=== PATIENT | male | born 1955 | race Caucasian/White ===

== ENCOUNTER 2016-09-16 12:29 | Inpatient (IN) | payer MEDICAID, OTHER ==
[~2016-09-16] VITALS: Ht 182.9 cm; Wt 72.0 kg
[~2016-09-16 12:29] MED LIST changes: -BACT800T5 PO; -COLA100C3 PO; -EMTR1TAB PO; -EMTR1TAB5 PO; -MEGE40S PO
[2016-09-16] MEDS ORDERED: EMTR1TAB PO (12:42)
[2016-09-17] MEDS ORDERED: BACT800T5 PO (11:00)
[2016-09-23] MEDS ORDERED: METOPROLOL TARTRATE 25 MG TAB PO PRN (06:15)
[2016-09-23] MEDS ORDERED: SODIUM CHLORID 0.9% 500 ML IV PRN (06:15)
[2016-09-23] MEDS ORDERED: POVIDONE IODINE 5% (ANTISEPSIS KIT) 4 APPLICATIONS EACH NARE PRN (06:15)
[2016-09-23] MEDS ORDERED: INSULIN HUMAN REGULAR 1,000 UNITS/10 ML VIAL SQ PRN (06:15)
[2016-09-23] MEDS ORDERED: CHLORHEXIDINE GLUCONATE 2 % 1 PACK (2 CLOTHS) TOPICAL PRN (06:15)
[2016-09-23] MEDS ORDERED: LACTATED RINGER'S 1000 ML IV PRN (06:15)
[2016-09-23 06:32] VITALS: BP 98/67; PULSE 87; RESP 18; TEMP 97.8; O2SAT 98
[2016-09-23] MEDS ORDERED: GELFOAM SIZE 100 ONE (07:28)
[2016-09-23] MEDS ORDERED: FAMOTIDINE 20 MG/2 ML VIAL ONE (08:09)
[2016-09-23] MEDS ORDERED: MIDAZOLAM HCL 2 MG/2 ML VIAL ONE (08:09)
[2016-09-23] MEDS ORDERED: fentaNYL CITRATE 250 MCG/5 ML AMP ONE ×2 (08:09→16:05)
[2016-09-23] MEDS ORDERED: GENTAMICIN 80 MG PREMIX 100 ML ONE (08:10)
[2016-09-23] MEDS ORDERED: SODIUM CHLOR 0.9% 250 ML INJ 250 ML ONE (08:10)
[2016-09-23] MEDS ORDERED: metroNIDAZOLE 500 MG INJ 100 ML IV ONE (08:10)
[2016-09-23] MEDS ORDERED: VANCOMYCIN HCL 1000 MG VIAL ONE (08:10)
[2016-09-23] MEDS ORDERED: METRONIDAZOLE 500 MG/100 ML ISONTONIC SOLN IV SCH (08:30)
[2016-09-23] MEDS ORDERED: GENTAMICIN/SOD CHL 80 MG/100 ML IV SCH (08:30)
[2016-09-23] MEDS ORDERED: VANCOMYCIN HCL 1000 MG ON-CALL/NS 250 ML IV SCH ×2 (08:30)
[2016-09-23] MEDS ORDERED: ACETAMINOPHEN 1000 MG/100 ML VIAL IV ONE (10:32)
[2016-09-23 12:07] LABS: HEMATOCRIT 22.7 % (39.0-51.0); REVIEW FLAG FINAL
[2016-09-23 14:00] LABS: HEMATOCRIT 26.5 % (39.0-51.0); REVIEW FLAG FINAL
[2016-09-23 14:12] LABS: BLOOD GAS CARBOXYHEMOGLOBIN 2.1 % (0-4); BLOOD GAS HCO3 22 mmol/L (22-26); BLOOD GAS METHEMOGLOBIN 1.4 % (0-2); BLOOD GAS O2 HGB SATURATION 96 % (90-100); BLOOD GAS OXYGEN CONTENT 20.1 Vol % (12.0-20.0); BLOOD GAS PCO2 46 mmHg (38-42); BLOOD GAS PO2 223 mmHg (61-120); BLOOD GAS TOTAL HGB 14.6 G/DL (12.0-16.0); CRITICAL VALUE NO; TEMP CORR TO 98.6
[2016-09-23 14:13] LABS: FIO2 56 %; STAT NO
[2016-09-23 14:14] LABS: BLOOD GAS CARBOXYHEMOGLOBIN 1.8 % (0-4); BLOOD GAS HCO3 22 mmol/L (22-26); BLOOD GAS METHEMOGLOBIN 1.4 % (0-2); BLOOD GAS O2 HGB SATURATION 96 % (90-100); BLOOD GAS OXYGEN CONTENT 16.8 Vol % (12.0-20.0); BLOOD GAS PCO2 45 mmHg (38-42); BLOOD GAS PO2 249 mmHg (61-120); TEMP CORR TO 98.6
[2016-09-23 14:15] LABS: CRITICAL VALUE NO; FIO2 56 %; STAT NO
[2016-09-23] MEDS ORDERED: LACTATED RINGER'S 1000 ML INJ 5,000 ML IV ONE (14:15)
[2016-09-23] MEDS ORDERED: PHENYLEPH/NS 1000 MCG/10 ML SYR IV ONE (14:15)
[2016-09-23] MEDS ORDERED: ONDANSETRON HCL 4 MG/2 ML VIAL IV PUSH ONE (14:15)
[2016-09-23] MEDS ORDERED: PROPOFOL 200 MG/20 ML AMP IV ONE (14:15)
[2016-09-23] MEDS ORDERED: ONDANSETRON HCL 4 MG/2 ML VIAL IV PUSH PRN (15:45)
[2016-09-23] MEDS ORDERED: ACETAMINOPHEN 120 MG SUPP RECTAL PRN (15:45)
[2016-09-23] MEDS ORDERED: DO NOT ADM ANY ANTICOAGULANT DRUGS PRN (15:57)
[2016-09-23] MEDS ORDERED: *morphine SULFATE 8 MG/ML PERIprocedure ONLY ONE ×3 (16:06→16:45)
[2016-09-23] MEDS ORDERED: SUGAMMADEX SODIUM 200 MG/2 ML VIAL IV PUSH ONE ×2 (16:06)
--- NOTE | 2016-09-23 16:10 | PD.OP ---
Operative Report Date of Surgery: Sep 23, 2016 Preoperative Diagnosis: High-grade muscle invasive bladder cancer Postoperative Diagnosis: Same Procedure: Radical cystoprostatectomy with bilateral pelvic lymph node dissection with creation of ileal conduit Anesthesia: BHARGAV Surgeon: López Vora Manager Career(s): Dr. Jhonny Garcia Resident Surgeon: None Operation and Findings: 61-year-old male with diagnosis of muscle invasive bladder cancer. 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 Risk and benefits were discussed preoperatively with both patient and his family and they were willing to proceed. Patient is brought to the operating room and identified by myself as Maxim Foster. He was placed on the operating room table in the supine position, prepped and draped in usual sterile fashion, received preprocedure antibiotics, and general endotracheal tube anesthesia was administered. Central line was placed as well as a arterial line. An NG tube was also placed. 15 blade was used to make the opening incision from the symphysis pubis up to the umbilicus. Rick's and Camper's fascia were then entered in the midline was identified. The knife was then used to make a small incision in the fascia, and then my index finger was able to slide under the fascia and cut the fascia with the Bovie cautery. The rectus muscle was at the linea alba and then the peritoneum was swept medially along the pelvic side stoddard on each side. This time the pelvic lymph node dissection was then performed. Once the Bookwalter was then placed and retractors were set in place, the pelvic lymph node dissection was then initiated. Using the Metzenbaum scissors as well as multiple medium clips the sky packet was retrieved from the right obturator lymph node fossa. This was then sent to pathology. This was again then repeated on the left side without difficulty and the sky packet was then sent to pathology. Pathology reported the both lymph node packets were negative for metastatic disease. Care was taken to avoid both obturator nerves on each side. Ray-Perez sponges were each placed in the obturator fossas. At this time a inverted V-shaped incision was made in the peritoneum down to the level of the bladder. The bladder was then elevated by its urachal remnant, and then the peritoneum behind the bladder was then scored with the Bovie cautery. The posterior aspect of the bladder was then away from the colon. Using the Ethicon stapler, the lateral pedicles of the bladder were then taken on each side. This extended down to the area near the rectum. Care was taken to avoid the rectum and distal colon region. At this point, using a Reid clamp the dorsal vein complex was clamped and sutured with a 2-0 Vicryl suture. The dorsal vein was then cut. Some bleeding was noted and more 2-0 Vicryl sutures and placed to obtain hemostasis. A right angle clamp was then passed under the dorsal vein complex and then cut down to the Pascual catheter. Pascual catheter was then brought out through this incision and cut at its distal end. The prostate was now elevated and umbilical tape was passed under the urethra above the rectum. This area of the rectourethralis was then cut. The prostate then was freed from its pedicles on each side. The remaining pedicles attaching to the bladder and inferior prostate were then taken with the Ethicon stapler on each side. The sample was then sent to pathology. The ureters were identified bilaterally and tied off near its insertion close to the bladder. Distal segments of both the right and left ureter were sent to pathology and these were found to be negative for tumor on frozen section. Attention was then directed to reduce that a distal small bowel segment near the ileocecal valve. Approximately 15 cm from the ileocecal were identified and in the following 15 cm were used to create the ileal conduit. The bowel was then and reanastomosed. The conduit segment was opened at its distal aspect and then using a tonsil clamp and the Bovie was used to walton the clamp through the conduit and at this point the ureter from the left side was sewn with a running 4-0 Vicryl suture. Stents were placed prior to suturing both ureters to the ileal conduit. The conduit was also irrigated for any stool and this was cleared. At this point, the stoma was created on the right side adjacent near the umbilicus through the rectus muscle. This was sewn down with 2-0 Vicryl sutures in a northway stoma was created. Stents were sutured with a 4-0 silk suture as well as red rubber catheter. Hemostasis was obtained within the abdomen and Cally was used in the pelvic floor region. A 22 Yi Pascual catheter was inserted into the penis and will act as a pelvic drain. The wound was then irrigated and closed with running #1 looped PDS and artem were used to close the skin. The patient tolerated the procedure well and was transferred to her room in stable condition. López Vora DO Sep 23, 2016 16:10
--- NOTE | 2016-09-23 16:44 | RADRPT ---
EXAM DATE/TIME: 09/23/2016 15:56 [facility] COMPARISON: ABDOMEN KUB ONLY, September 23, 2016, 16:01. INDICATIONS : Central line and NG tube placement. MEDICAL HISTORY : None. SURGICAL HISTORY : None. ENCOUNTER: Initial ACUITY: 1 day PAIN SCORE: 10/10 LOCATION: Bilateral chest FINDINGS: Right-sided port catheter is noted. The tip overlies the SVC/right atrial junction. Left subclavian l ine tip overlies the SVC. There is moderate elevation of left hemidiaphragm. An NG tube is noted and appears coiled in the hypopharynx. I do not see a pneumothorax, however there is crescentic lucency b eneath the right hemidiaphragm, and free intraperitoneal air is suspected.. CONCLUSION: 1. NG tube placement as above and central line placement as above without pneumothorax. 2. Free intraperitoneal air is noted. Kunal Rucker MD on September 23, 2016 at 16:41 Board Certified Radiologist. This report was verified electronically.
--- NOTE | 2016-09-23 16:45 | RADRPT ---
EXAM DATE/TIME: 09/23/2016 16:01 [facility] COMPARISON: No previous studies available for comparison. INDICATIONS : Stent and NG tube placement. MEDICAL HISTORY : None. SURGICAL HISTORY : None. ENCOUNTER: Initial ACUITY: 1 day PAIN SCORE: Non-responsive. LOCATION: Bilateral abdomen. FINDINGS: There are bilateral ureteral stents noted with a diverging ileostomy in the right lower quadrant. Ski n artem are present as well as surgical clips within the pelvis. There is soft tissue emphysema ove rlying the pelvis. CONCLUSION: Postsurgical changes are noted as above. Kunal Rucker MD on September 23, 2016 at 16:42 Board Certified Radiologist. This report was verified electronically.
[2016-09-23] MEDS ORDERED: NALOXONE HCL 0.4 MG/ML AMP IV PRN (17:00)
[2016-09-23] MEDS ORDERED: diphenhydrAMINE HCL 50 MG/ML VIAL IV PUSH PRN (17:00)
[2016-09-23] MEDS ORDERED: *HYDROmorphone PF 1 MG VIAL PERIprocedural Use ONLY ONE (17:04)
[2016-09-23] MEDS: LACTATED RINGER'S 1000 ML INJ 1,000 ML IV SCH (17:10)
[2016-09-23 17:12] LABS: HEMATOCRIT 30.4 % (39.0-51.0); MEAN CELL VOLUME 86.7 FL (80.0-100.0); MEAN CORPUSCULAR HEMOGLOBIN 28.6 PG (27.0-34.0); PLATELET COUNT 178 TH/MM3 (150-450); RED CELL DISTRIBUTION WIDTH 14.6 % (11.6-17.2); REVIEW FLAG FINAL; WHITE BLOOD COUNT 9.9 TH/MM3 (4.0-11.0)
[2016-09-23 17:22] LABS: PROTHROMBIN TIME - PATIENT 10.9 SEC (9.8-11.6)
[2016-09-23 17:29] LABS: ALKALINE PHOSPHATASE 78 U/L (45-117); ALT (GPT) 9 U/L (12-78); ANION GAP 7 MEQ/L (5-15); AST (GOT) 11 U/L (15-37); BICARBONATE 25.1 MEQ/L (21.0-32.0); BLOOD UREA NITROGEN 15 MG/DL (7-18); CHLORIDE 107 MEQ/L (98-107); GLOMERULAR FILTRATION RATE 57 ML/MIN (>89); MAGNESIUM 1.7 MG/DL (1.5-2.5); POTASSIUM 4.8 MEQ/L (3.5-5.1); SODIUM (NA) 139 MEQ/L (136-145); TOTAL BILIRUBIN ADULT 3.3 MG/DL (0.2-1.0)
[2016-09-23] MEDS: HYDROmorphone HCL PCA 6 MG/30 ML IV SCH (17:40)
[2016-09-23] MEDS: PANTOPRAZOLE SODIUM 40 MG VIAL IV PUSH SCH (18:13)
[2016-09-23 20:00] VITALS: BP 98/46; PULSE 78; PULSE 80; RESP 14; TEMP 98.8; O2SAT 98
[2016-09-23 20:02] VITALS: O2SAT 98
[2016-09-23 20:35] VITALS: O2SAT 96
[2016-09-23] MEDS: VANCOMYCIN INJ 1,000 MG in SODIUM CHLOR 0.9% 250 ML INJ 250 ML IV SCH (21:00)
[2016-09-23] MEDS: CLINIMIX E 4.25/25 1000 mL- </= 42 mls/hr IV-CENTRAL SCH ×3 (21:46)
[2016-09-23 22:00] VITALS: PULSE 77
[2016-09-23] MEDS: PCA - TOTAL MG DILAUDID DELIVERED PER SHIFT SCH (22:00)
[2016-09-24] VITALS (14 sets, daily range): BP systolic 102–121; BP diastolic 55–60; PULSE 79–92; RESP 17–20; TEMP 98.2–100.2; O2SAT 93–100
--- NOTE | 2016-09-24 01:05 | PD.CONS ---
[facility] Service Critical Care Medicine Consult Requested By Dr. López Vora Reason for Consult Critical care management following radical cystoprostatectomy Primary Care Physician History of Present Illness 61-year-old man with past medical history of HIV diagnosed 20 years ago on HAART , COPD, tobacco abuse who was diagnosed with muscle invasive bladder cancer in April of 2016. He was treated with neoadjuvant chemotherapy under the care of Dr. Mckeon. He states he completed chemotherapy 2 months ago. He underwent radical cystoprostatectomy and pelvic lymph node dissection with creation of ileoconduit by Dr. Jose Vora on 09/23/16 and critical care medicine was consulted to assist with medical management postoperatively. He complains only of thirst. No flatus. Anesthesia records were reviewed. He had a routine airway. He received 5500 of crystalloid and 350 of packed red cells. Estimated blood loss was 1600. Postoperative hemoglobin is 10. Hourly urine outputs have been ~ 200 mL an hour Review of Systems Gastrointestinal: COMPLAINS OF: Abdominal pain Past Family Social History Allergies: Coded Allergies: Penicillin (Unverified Allergy, Severe, BRUISING/ INFANT, 09/23/16) Past Medical History HIV diagnosed 20 years ago. He hasn't been under treatment with HAART and states the viral loads are undetectable COPD Past Surgical History Appendectomy C5 fusion 2010 (Dr. Alvarez) Right chest Port-A-Cath 04/29/16 Tonsillectomy Reported Medications Atazanavir 3 mg by mouth daily Truvada 1 tab by mouth daily Norvir 100 mg by mouth daily Active Ordered Medications Current Medications Medications (Trade) Dose Ordered Sig/Alfredo Route Start Time Stop Time Status Last Admin Sodium Chloride 500 ml @ 30 mls/hr [id number] PRN IV 09/23/16 06:15 09/26/16 06:14 (Vancomycin Inj/ NS 250 ml Inj) 250 ml @ 250 mls/hr Q12H IV 09/23/16 21:00 09/23/16 21:00 (Protonix Inj) 40 mg Q24H IV PUSH 09/23/16 16:00 09/23/16 18:13 (Tylenol Supp) 120 mg Q6H PRN RECTAL 09/23/16 15:45 Enoxaparin Sodium 30 mg 30 mg Q24H SQ 09/24/16 15:00 (Lr 1000 ml Inj) 1,000 ml @ 84 mls/hr [id number] IV 09/23/16 16:00 4/11/17 17:10 (Zofran Inj) 4 mg Q6HR PRN IV PUSH 09/23/16 15:45 (Reyataz) 300 mg DAILY PO 09/24/16 09:00 (Norvir Liq) 100 mg DAILY PO 09/24/16 09:00 (Truvada 200-300 Mg) 1 tab DAILY PO 09/24/16 09:00 (Dilaudid [employer] Inj) 6 mg UNSCH IV 09/23/16 17:00 09/23/16 17:40 [employer] Dosage Infused (Pha) 1 Q8HR .XX 09/23/16 22:00 09/23/16 22:00 (Narcan Inj) 0.4 mg UNSCH PRN IV 09/23/16 17:00 (Benadryl Inj) 25 mg Q6H PRN IV PUSH 09/23/16 17:00 Miscellaneous Information ALL NURSING DEPARTME... UNSCH PRN .XX 09/23/16 15:57 09/24/16 15:56 (Mvi-12 Inj/ Folvite Inj/ Clinimix E ) 1,010.2 ml @ 42 mls/hr Q24H IV-CENTRAL 09/23/16 20:00 09/23/16 21:46 Family History Patient states he is not aware of any significant family medical history. Social History He states he smoked a half pack of cigarettes per day for 45 years He currently does not drink alcohol at all. He states he never drank heavily Denies use of illicit drugs He is not . He has 6 children He states he is currently on Social Security disability. 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 Physical Exam Vital Signs Vital Signs Date Time Temp Pulse Resp B/P Pulse Ox O2 Delivery O2 Flow Rate FiO2 09/23/16 22:00 15 09/23/16 22:00 77 09/23/16 20:35 96 21 09/23/16 20:02 98 Nasal Cannula 2.00 09/23/16 20:00 98.8 80 14 98/46 98 09/23/16 20:00 78 09/23/16 19:00 98 Room Air 09/23/16 17:40 14 09/23/16 06:32 97.8 87 18 98/67 98 Physical Exam Drips: TPN 42 mL per hour LR 84 milliliters per hour Dilaudid [employer]P Temp 98.8 blood pressure 118/75 sinus rhythm at a rate of 84 sats 95% on room air GENERAL: Well-nourished, well-developed patient who is sitting up in bed, alert and conversant. SKIN: Warm and dry, well perfused. HEAD: Atraumatic. Normocephalic. EYES: Pupils equal and round, 3 mm and reactive bilaterally. No scleral icterus. No injection or drainage. ENT: No nasal bleeding or discharge. Mucous membranes pink and moist. NECK: Trachea midline. No JVD. CARDIOVASCULAR: Distant heart sounds. Regular rate and rhythm, sinus on the monitor, 2/6 systolic murmur RESPIRATORY: Breathing comfortably without accessory muscle use. Clear to auscultation. Breath sounds equal bilaterally. On room air VASC:Port right chest is accessed. Left subclavian central venous line in place. Right radial art line in place with distal perfusion intact. GASTROINTESTINAL: Abdomen soft, mildly tender with absent bowel sounds, dressing in place lower abdomen c/d/i. Ileostomy stoma is pink, red rubber catheter in place and stent x2, yellow urine output. Pascual is in place with serosanginous output. NG tube is in place to suction with essentially no output MUSCULOSKELETAL: Extremities without clubbing, cyanosis, or edema. NEUROLOGICAL: Awake and alert, oriented and conversing appropriately. No obvious cranial nerve deficits. Motor grossly within normal limits. Normal speech. Laboratory Laboratory Tests Test 09/23/16 09/23/16 09/23/16 09/23/16 06:29 06:34 11:34 11:50 Blood Type A POSITIVE A POSITIVE Antibody Screen NEGATIVE Crossmatch Leukocyte-Reduced Red Blood Cells Blood Bank Comment Hemoglobin 7.5 Hematocrit 22.7 Blood Gas Puncture Site DRAWN IN OR Blood Gas Patient Temperature 98.6 Blood Gas HCO3 22 Blood Gas Base Excess -3.0 Blood Gas Oxygen Saturation 96 Arterial Blood pH 7.31 Arterial Blood Partial 46 Pressure CO2 Arterial Blood Partial 223 Pressure O2 Arterial Blood Oxygen Content 20.1 Arterial Blood 2.1 Carboxyhemoglobin Arterial Blood Methemoglobin 1.4 Blood Gas Hemoglobin 14.6 Oxygen Delivery Device Blood Gas Inspired Oxygen 56 Test 09/23/16 09/23/16 09/23/16 09/23/16 13:29 13:50 13:56 14:11 Hemoglobin 9.0 Hematocrit 26.5 Blood Type A POSITIVE Crossmatch Leukocyte-Reduced Red Blood Cells Blood Bank Comment Blood Gas Puncture Site DRAWN IN OR Blood Gas Patient Temperature 98.6 Blood Gas HCO3 22 Blood Gas Base Excess -4.0 Blood Gas Oxygen Saturation 96 Arterial Blood pH 7.30 Arterial Blood Partial 45 Pressure CO2 Arterial Blood Partial 249 Pressure O2 Arterial Blood Oxygen Content 16.8 Arterial Blood 1.8 Carboxyhemoglobin Arterial Blood Methemoglobin 1.4 Blood Gas Hemoglobin 12.0 Blood Gas Inspired Oxygen 56 Test 09/23/16 16:49 White Blood Count 9.9 Red Blood Count 3.50 Hemoglobin 10.0 Hematocrit 30.4 Mean Corpuscular Volume 86.7 Mean Corpuscular Hemoglobin 28.6 Mean Corpuscular Hemoglobin 33.0 Concent Red Cell Distribution Width 14.6 Platelet Count 178 Mean Platelet Volume 7.6 Prothrombin Time 10.9 Prothromb Time International 1.0 Ratio Sodium Level 139 Potassium Level 4.8 Chloride Level 107 Carbon Dioxide Level 25.1 Anion Gap 7 Blood Urea Nitrogen 15 Creatinine 1.27 Estimat Glomerular Filtration 57 Rate Random Glucose 144 Calcium Level 7.9 Phosphorus Level 3.8 Magnesium Level 1.7 Total Bilirubin 3.3 Aspartate Amino Transf 11 (AST/SGOT) Alanine Aminotransferase 9 (ALT/SGPT) Alkaline Phosphatase 78 Total Protein 5.1 Albumin 2.4 Triglycerides Level 130 Result Diagram: 09/23/16 1649 09/23/16 1649 Assessment and Plan Assessment and Plan NEURO: Pain, postoperative Dilaudid [employer]P RESP: COPD Tobacco abuse Incentive spirometry every hour awake DuoNeb every 6 hours. Albuterol every 2 hours when necessary CV: Patient states he had a preoperative stress test which was negative for ischemia. GI: Moderate protein energy malnutrition Hyperbilirubinemia Nothing by mouth. NG tube in place to LIWS with management per urology while awaiting return of bowel function. F/u LFTS FEN/RENAL: TPN@42 mL per hour LR 84 mL/h Monitoring hourly urine output. Monitor electrolytes and replace as indicated per ICU electrolyte replacement protocol. UROLOGY: s/p radical cystoprostatectomy, pelvic lymph node resection, ileal conduit, bilateral ureteral stents 09/23/16 (Dr. López Vora) ID: HIV Resume HAART meds when able to take po. Monitor for signs/symptoms of infection. Perioperative vancomycin, flagyl, gent per urology. HEME: Acute blood loss anemia Hgb 10 postoperative. F/u CBC in am. Received 3 units PRBC in OR 09/23 ENDO: Mild hyperglycemia Followup glucose and initiate low-dose insulin sliding scale if indicated PROPH: SCDs for DVT prophylaxis. Lovenox 30 mg subcutaneous daily to start afternoon 09/24/16. Protonix 40 mg IV daily for stress ulcer prophylaxis. ACCESS: Left subclavian central venous line placed 09/23/16 #2. Right radial art line placed in OR 09/23/16 #2, can discontinue later this morning. R chest port accessed. Was placed 04/29/16 Level 3 Consult lAanna Banks MD Sep 24, 2016 01:05
[2016-09-24] MEDS ORDERED: POTASSIUM PHOSPHATE MONOBASIC 500 MG TAB PO/TUBE PRN (01:11)
[2016-09-24] MEDS ORDERED: POTASSIUM PHOSPHATE INJ 30 MMOL in SODIUM CHLOR 0.9% 250 ML INJ 250 ML IV PRN (01:11)
[2016-09-24] MEDS ORDERED: RESP: ALBUTEROL 2.5 MG/3 ML NEB (PRN) NEB (01:15)
[2016-09-24] MEDS ORDERED: POTASSIUM CHLOR 20 MEQ PREMIX 100 ML IV PRN ×2 (01:15)
[2016-09-24] MEDS ORDERED: POTASSIUM PHOSPHATE MONOBASIC 500 MG TAB PO PRN (01:15)
[2016-09-24] MEDS ORDERED: MAGNESIUM SULFATE INJ 2 GM in SODIUM CHLORIDE 0.9% INJ 96 ML IV PRN (01:15)
[2016-09-24] MEDS ORDERED: MAGNESIUM OXIDE 400 MG TAB PO PRN (01:15)
[2016-09-24] MEDS ORDERED: POTASSIUM CHLOR 40 MEQ PREMIX 100 ML IV PRN ×2 (01:15)
[2016-09-24] MEDS ORDERED: MAGNESIUM SULFATE INJ 4 GM in SODIUM CHLORIDE 0.9% INJ 92 ML IV PRN (01:15)
[2016-09-24] MEDS: RESP: ALBUTEROL 2.5 MG/IPRATROPIUM 0.5 MG NEB (SCH) NEB ×4 (03:05→21:17)
[2016-09-24] MEDS: LACTATED RINGER'S 1000 ML INJ 1,000 ML IV SCH ×2 (03:55→16:12)
[2016-09-24] MEDS: PCA - TOTAL MG DILAUDID DELIVERED PER SHIFT SCH ×3 (06:00→22:00)
[2016-09-24 06:10] LABS: HEMATOCRIT 26.1 % (39.0-51.0); MEAN CELL VOLUME 86.1 FL (80.0-100.0); MEAN CORPUSCULAR HGB CONC 34.8 % (32.0-36.0); PLATELET COUNT 187 TH/MM3 (150-450); RED BLOOD COUNT 3.03 MIL/MM3 (4.50-5.90); RED CELL DISTRIBUTION WIDTH 14.8 % (11.6-17.2); REVIEW FLAG FINAL; WHITE BLOOD COUNT 7.7 TH/MM3 (4.0-11.0)
[2016-09-24 06:43] LABS: ALKALINE PHOSPHATASE 74 U/L (45-117); ALT (GPT) 15 U/L (12-78); ANION GAP 5 MEQ/L (5-15); AST (GOT) 18 U/L (15-37); BICARBONATE 28.7 MEQ/L (21.0-32.0); BLOOD UREA NITROGEN 14 MG/DL (7-18); CHLORIDE 107 MEQ/L (98-107); GLOMERULAR FILTRATION RATE 60 ML/MIN (>89); POTASSIUM 4.1 MEQ/L (3.5-5.1); SODIUM (NA) 141 MEQ/L (136-145); TOTAL BILIRUBIN ADULT 2.4 MG/DL (0.2-1.0)
[2016-09-24 08:14] LABS: MAGNESIUM 1.9 MG/DL (1.5-2.5)
--- NOTE | 2016-09-24 08:28 | HHI.PR ---
Subjective Patient symptoms today Pt seen and examined. Stable overnight. No events. Incisional pain noted. On [employer] STATION. Objective Vital Signs Vital Signs Date Time Temp Pulse Resp B/P Pulse Ox O2 Delivery O2 Flow Rate FiO2 09/24/16 06:00 92 09/24/16 06:00 21 09/24/16 04:00 100.2 88 17 107/55 93 09/24/16 04:00 88 09/24/16 02:00 81 09/24/16 00:00 99.2 82 20 104/58 98 09/24/16 00:00 83 09/23/16 22:00 15 09/23/16 22:00 77 09/23/16 20:35 96 21 09/23/16 20:02 98 Nasal Cannula 2.00 09/23/16 20:00 98.8 80 14 98/46 98 09/23/16 20:00 78 09/23/16 19:00 98 Room Air 09/23/16 17:40 14 Intake & Output 09/24/16 09/24/16 07:00 19:00 Intake Total 2040 ml Output Total 2511 ml Balance -471 ml Intake Oral 100 ml IV Total 1276 ml TPN/PPN 341 ml FFP 323 ml Output Urine Total 2225 ml Gastric Drainage Total 0 ml Drainage Total 286 ml # Bowel Movements 0 Result Diagram: 09/24/1652909/24/1630 Objective Remarks Abd:soft,tender on exam, no rebound, incisional tenderness Ext: neg C/C/E Pelvic Drain: blood tinged Dressing intact Medications and IVs Current Medications Medications (Trade) Dose Ordered Sig/Alfredo Route Start Time Stop Time Status Last Admin Sodium Chloride 500 ml @ 30 mls/hr [id number] PRN IV 09/23/16 06:15 09/26/16 06:14 (Vancomycin Inj/ NS 250 ml Inj) 250 ml @ 250 mls/hr Q12H IV 09/23/16 21:00 09/23/16 21:00 (Protonix Inj) 40 mg Q24H IV PUSH 09/23/16 16:00 09/23/16 18:13 (Tylenol Supp) 120 mg Q6H PRN RECTAL 09/23/16 15:45 Enoxaparin Sodium 30 mg 30 mg Q24H SQ 09/24/16 15:00 (Lr 1000 ml Inj) 1,000 ml @ 84 mls/hr [id number] IV 09/23/16 16:00 09/24/16 03:55 (Zofran Inj) 4 mg Q6HR PRN IV PUSH 09/23/16 15:45 (Reyataz) 300 mg DAILY PO 09/24/16 09:00 (Truvada 200-300 Mg) 1 tab DAILY PO 09/24/16 09:00 (Dilaudid [employer] Inj) 6 mg UNSCH IV 09/23/16 17:00 09/23/16 17:40 [employer] Dosage Infused (Pha) 1 Q8HR .XX 09/23/16 22:00 09/24/16 06:00 (Narcan Inj) 0.4 mg UNSCH PRN IV 09/23/16 17:00 (Benadryl Inj) 25 mg Q6H PRN IV PUSH 09/23/16 17:00 Miscellaneous Information ALL NURSING DEPARTME... UNSCH PRN .XX 09/23/16 15:57 09/24/16 15:56 Multivitamins 10 ml/Folic Acid 1 mg/Amino Acids/ Electrolytes/ Dextrose 1,010.2 ml @ 42 mls/hr Q24H IV-CENTRAL 09/23/16 20:00 09/23/16 21:46 Potassium Chloride 100 ml @ 50 mls/hr Q2H PRN IV 09/24/16 01:15 Potassium Chloride 100 ml @ 50 mls/hr Q2H PRN IV 09/24/16 01:15 Potassium Chloride 100 ml @ 25 mls/hr UNSCH PRN IV 09/24/16 01:15 Potassium Chloride 100 ml @ 50 mls/hr Q2H PRN IV 09/24/16 01:15 (Magnesium Sulfate Inj/NS Inj) 100 ml @ 50 mls/hr UNSCH PRN IV 09/24/16 01:15 Magnesium Oxide 800 mg 800 mg UNSCH PRN PO 09/24/16 01:15 (Magnesium Sulfate Inj/NS Inj) 100 ml @ 50 mls/hr UNSCH PRN IV 09/24/16 01:15 Potassium Phosphate 2000 mg 2,000 mg Q4H PRN PO 09/24/16 01:15 (Sodium Phosphate Inj/NS 250 ml Inj) 250 ml @ 42 mls/hr UNSCH PRN IV 09/24/16 01:15 Potassium Phosphate 2000 mg 2,000 mg UNSCH PRN PO/TUBE 09/24/16 01:11 (Potassium Phosphate Inj/NS 250 ml Inj) 260 ml @ 42 mls/hr UNSCH PRN IV 09/24/16 01:11 Ritonavir 100 mg 100 mg DAILY PO 09/24/16 09:00 (Potassium Phosphate Inj/NS 250 ml Inj) 260 ml @ 43.333 mls/ hr ONCE ONCE IV 09/24/16 08:30 09/24/16 14:29 UNV Assessment and Plan Assessment and Plan Stable s/p cystoprostatectomy and PLND OOB to chair today Encourage I/S Continue TPN Replace P04 López Vora DO Sep 24, 2016 08:28
[2016-09-24] MEDS ORDERED: SODIUM PHOSPHATE INJ 30 MMOL in SODIUM CHLOR 0.9% 250 ML INJ 250 ML IV ONE (08:30)
[2016-09-24] MEDS ORDERED: POTASSIUM PHOSPHATE INJ 30 MMOL in SODIUM CHLOR 0.9% 250 ML INJ 250 ML IV ONE (08:30)
[2016-09-24] MEDS: RITONAVIR 100 MG TAB PO SCH (09:00)
[2016-09-24] MEDS: ATAZANAVIR 150 MG CAP PO SCH (09:00)
[2016-09-24] MEDS: EMTRICITABINE/TENOFOVIR 200 MG/300 MG TAB PO SCH (09:00)
[2016-09-24] MEDS ORDERED: RITONAVIR PO SCH (09:00)
[2016-09-24] MEDS: VANCOMYCIN INJ 1,000 MG in SODIUM CHLOR 0.9% 250 ML INJ 250 ML IV SCH ×2 (09:03→21:48)
[2016-09-24] MEDS: HYDROmorphone HCL PCA 6 MG/30 ML IV SCH (09:39)
[2016-09-24] MEDS: SODIUM PHOSPHATE INJ 30 MMOL in SODIUM CHLOR 0.9% 250 ML INJ 240 ML IV PRN (11:55)
[2016-09-24] MEDS ORDERED: GLUCAGON 1 MG/ML VIAL IM/SQ PRN (13:45)
[2016-09-24] MEDS ORDERED: DEXTROSE 50% IN WATER 50 ML VIAL(D50) IV PRN (13:45)
[2016-09-24] MEDS: INSULIN ASPART SUPPLEMENTAL SCALE SQ SCH ×2 (14:00→17:56)
[2016-09-24] MEDS: PANTOPRAZOLE SODIUM 40 MG VIAL IV PUSH SCH (15:01)
[2016-09-24] MEDS: ENOXAPARIN SODIUM 30 MG/0.3 ML SYRINGE SQ SCH (15:01)
[2016-09-24] MEDS: CLINIMIX E 4.25/25 1000 mL- </= 42 mls/hr IV-CENTRAL SCH ×3 (21:49)
[2016-09-25] VITALS (12 sets, daily range): BP systolic 90–134; BP diastolic 51–76; PULSE 82–92; RESP 12–20; TEMP 98.8–99.7; O2SAT 94–96
[2016-09-25] MEDS: RESP: ALBUTEROL 2.5 MG/IPRATROPIUM 0.5 MG NEB (SCH) NEB ×4 (03:41→19:26)
[2016-09-25] MEDS: LACTATED RINGER'S 1000 ML INJ 1,000 ML IV SCH ×2 (03:45→15:40)
[2016-09-25 05:54] LABS: AUTOMATED NEUTROPHIL # 5.5 TH/MM3 (1.8-7.7); BASOPHIL % 0.4 % (0.0-2.0); EOSINOPHIL # 0.2 TH/MM3 (0-0.4); EOSINOPHIL % 2.9 % (0.0-4.0); HEMO FLAGS DIFF FINAL; LYMPH % 19.3 % (9.0-44.0); LYMPHOCYTE # 1.6 TH/MM3 (1.0-4.8); MEAN CELL VOLUME 85.9 FL (80.0-100.0); MEAN CORPUSCULAR HEMOGLOBIN 29.8 PG (27.0-34.0); MEAN CORPUSCULAR HGB CONC 34.7 % (32.0-36.0); MONO % 9.3 % (0.0-8.0); NEUT % 68.1 % (16.0-70.0); PLATELET COUNT 181 TH/MM3 (150-450); RED CELL DISTRIBUTION WIDTH 14.3 % (11.6-17.2); WHITE BLOOD COUNT 8.1 TH/MM3 (4.0-11.0)
[2016-09-25] MEDS: HYDROmorphone HCL PCA 6 MG/30 ML IV SCH (05:58)
[2016-09-25] MEDS: PCA - TOTAL MG DILAUDID DELIVERED PER SHIFT SCH ×3 (06:00→22:00)
[2016-09-25] MEDS: INSULIN ASPART SUPPLEMENTAL SCALE SQ SCH ×5 (06:00→23:26)
[2016-09-25 06:17] LABS: ANION GAP 4 MEQ/L (5-15); AST (GOT) 15 U/L (15-37); BICARBONATE 28.7 MEQ/L (21.0-32.0); BLOOD UREA NITROGEN 10 MG/DL (7-18); CHLORIDE 108 MEQ/L (98-107); GLOMERULAR FILTRATION RATE 86 ML/MIN (>89); MAGNESIUM 1.6 MG/DL (1.5-2.5); POTASSIUM 3.5 MEQ/L (3.5-5.1); SODIUM (NA) 141 MEQ/L (136-145)
[2016-09-25 06:20] LABS: ALKALINE PHOSPHATASE 77 U/L (45-117); ALT (GPT) 12 U/L (12-78); TOTAL BILIRUBIN ADULT 1.6 MG/DL (0.2-1.0)
--- NOTE | 2016-09-25 08:37 | HHI.PR ---
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 He was treated with neoadjuvant chemotherapy under the care of Dr. Mckeon. He states he completed chemotherapy 2 months ago. He underwent radical cystoprostatectomy and pelvic lymph node dissection with creation of ileoconduit by Dr. Jose Vora on 09/23/16 and critical care medicine was consulted to assist with medical management postoperatively. He complains only of thirst. No flatus. Anesthesia records were reviewed. He had a routine airway. He received 5500 of crystalloid and 350 of packed red cells. Estimated blood loss was 1600. Postoperative hemoglobin is 10. Hourly urine outputs have been ~ 200 mL an hour Hospitalist notes: 09/25: Seen in his bedroom in Intensive Care unit, recommended to replace Phosphorus that was done in am with Potassium Phosphate and also to replace magnesium with 2 grams of Magnesium Sulfate, will follow electrolytes in am, discussed with nurse Miss Hoang and with patient and relative in the room. Objective Vital Signs Date Time Temp Pulse Resp B/P Pulse Ox O2 Delivery O2 Flow Rate FiO2 09/25/16 06:00 99.1 90 18 105/57 94 09/25/16 06:00 88 09/25/16 06:00 16 09/25/16 05:58 16 09/25/16 04:00 90 09/25/16 02:00 82 09/25/16 00:00 84 09/25/16 00:00 99.7 84 18 105/57 95 09/24/16 22:00 88 09/24/16 22:00 17 09/24/16 21:18 95 21 09/24/16 20:00 Room Air 09/24/16 20:00 99.2 84 18 109/59 95 09/24/16 20:00 84 09/24/16 18:00 81 09/24/16 16:00 87 09/24/16 16:00 99.2 87 20 121/59 100 09/24/16 14:00 86 09/24/16 14:00 15 09/24/16 12:00 89 09/24/16 12:00 98.4 89 20 107/60 100 09/24/16 10:00 83 09/24/16 09:39 15 09/24/16 09:18 99 Nasal Cannula 2.00 I/O 09/24/16 09/24/16 09/24/16 09/25/16 09/25/16 09/25/16 07:00 15:00 23:00 07:00 15:00 23:00 Intake Total 1240 ml 1419 ml 1071 ml 1154 ml Output Total 1768 ml 1340 ml 1320 ml 1175 ml Balance -528 ml 79 ml -249 ml -21 ml Intake Oral 50 ml 0 ml IV Total 857 ml 1056 ml 601 ml 828 ml TPN/PPN 333 ml 363 ml 289 ml 326 ml FFP 0 ml Other 181 ml Output Urine Total 1625 ml 1250 ml 1300 ml 1150 ml Gastric Drainage Total 0 ml 0 ml 0 ml 0 ml Drainage Total 143 ml 90 ml 20 ml 25 ml # Bowel Movements 0 0 0 0 Result Diagram: 09/25/16 0540 09/25/16 0540 Imaging Last Impressions Chest X-Ray 09/23/16 0000 Signed Impressions: Service Date/Time: Friday, September 23, 2016 15:56 - CONCLUSION: 1. NG tube placement as above and central line placement as above without pneumothorax. 2. Free intraperitoneal air is noted. Kunal Rucker MD Abdomen X-Ray 09/23/16 0000 Signed Impressions: Service Date/Time: Friday, September 23, 2016 16:01 - CONCLUSION: Postsurgical changes are noted as above. Kunal Rucker MD Procedures s/p radical cystoprostatectomy, pelvic lymph node resection, ileal conduit, bilateral ureteral stents 09/23/16 (Dr. López Vora) Other Results Laboratory Tests Test 09/23/16 09/23/16 09/23/16 09/23/16 06:29 11:50 13:50 13:56 Antibody Screen NEGATIVE Oxygen Delivery Device Blood Type A POSITIVE Crossmatch Leukocyte-Reduced Red Blood Cells Blood Gas Puncture Site DRAWN IN OR Blood Gas Patient Temperature 98.6 Blood Gas HCO3 22 mmol/L Blood Gas Base Excess -4.0 mmol/L Blood Gas Oxygen Saturation 96 % Arterial Blood pH 7.30 Arterial Blood Partial 45 mmHg Pressure CO2 Arterial Blood Partial 249 mmHg Pressure O2 Arterial Blood Oxygen Content 16.8 Vol % Arterial Blood 1.8 % Carboxyhemoglobin Arterial Blood Methemoglobin 1.4 % Blood Gas Hemoglobin 12.0 G/DL Blood Gas Inspired Oxygen 56 % Test 09/23/16 09/23/16 09/25/16 14:11 16:49 05:40 Blood Bank Comment Prothrombin Time 10.9 SEC Prothromb Time International 1.0 RATIO Ratio Triglycerides Level 130 MG/DL White Blood Count 8.1 TH/MM3 Red Blood Count 2.80 MIL/MM3 Hemoglobin 8.3 GM/DL Hematocrit 24.0 % Mean Corpuscular Volume 85.9 FL Mean Corpuscular Hemoglobin 29.8 PG Mean Corpuscular Hemoglobin 34.7 % Concent Red Cell Distribution Width 14.3 % Platelet Count 181 TH/MM3 Mean Platelet Volume 7.5 FL Neutrophils (%) (Auto) 68.1 % Lymphocytes (%) (Auto) 19.3 % Monocytes (%) (Auto) 9.3 % Eosinophils (%) (Auto) 2.9 % Basophils (%) (Auto) 0.4 % Neutrophils # (Auto) 5.5 TH/MM3 Lymphocytes # (Auto) 1.6 TH/MM3 Monocytes # (Auto) 0.8 TH/MM3 Eosinophils # (Auto) 0.2 TH/MM3 Basophils # (Auto) 0.0 TH/MM3 CBC Comment DIFF FINAL Differential Comment Sodium Level 141 MEQ/L Potassium Level 3.5 MEQ/L Chloride Level 108 MEQ/L Carbon Dioxide Level 28.7 MEQ/L Anion Gap 4 MEQ/L Blood Urea Nitrogen 10 MG/DL Creatinine 0.89 MG/DL Estimat Glomerular Filtration 86 ML/MIN Rate Random Glucose 136 MG/DL Calcium Level 8.6 MG/DL Phosphorus Level 2.2 MG/DL Magnesium Level 1.6 MG/DL Total Bilirubin 1.6 MG/DL Aspartate Amino Transf 15 U/L (AST/SGOT) Alanine Aminotransferase 12 U/L (ALT/SGPT) Alkaline Phosphatase 77 U/L Total Protein 5.5 GM/DL Albumin 2.3 GM/DL Objective Remarks GENERAL: Well-nourished, well-developed patient who is sitting up in bed, alert and conversant. SKIN: Warm and dry, well perfused. HEAD: Atraumatic. Normocephalic. EYES: Pupils equal and round, 3 mm and reactive bilaterally. No scleral icterus. No injection or drainage. ENT: No nasal bleeding or discharge. Mucous membranes pink and moist. NECK: Trachea midline. No JVD. CARDIOVASCULAR: Distant heart sounds. Regular rate and rhythm, sinus on the monitor, 2/6 systolic murmur RESPIRATORY: Breathing comfortably without accessory muscle use. Clear to auscultation. Breath sounds equal bilaterally. On room air VASC:Port right chest is accessed. Left subclavian central venous line in place. Right radial art line in place with distal perfusion intact. GASTROINTESTINAL: Abdomen soft, mildly tender with absent bowel sounds, dressing in place lower abdomen c/d/i. Ileostomy stoma is pink. Pascual in place. MUSCULOSKELETAL: Extremities without clubbing, cyanosis, or edema. NEUROLOGICAL: Awake and alert, oriented and conversing appropriately. No obvious cranial nerve deficits. Motor grossly within normal limits. Normal speech. Medications and IVs Current Medications Medications (Trade) Dose Ordered Sig/Alfredo Route Start Time Stop Time Status Last Admin Sodium Chloride 500 ml @ 30 mls/hr [id number] PRN IV 09/23/16 06:15 09/26/16 06:14 (Vancomycin Inj/ NS 250 ml Inj) 250 ml @ 250 mls/hr Q12H IV 09/23/16 21:00 09/24/16 21:48 (Protonix Inj) 40 mg Q24H IV PUSH 09/23/16 16:00 09/24/16 15:01 (Tylenol Supp) 120 mg Q6H PRN RECTAL 09/23/16 15:45 Enoxaparin Sodium 30 mg 30 mg Q24H SQ 09/24/16 15:00 09/24/16 15:01 (Lr 1000 ml Inj) 1,000 ml @ 84 mls/hr [id number] IV 09/23/16 16:00 09/25/16 03:45 (Zofran Inj) 4 mg Q6HR PRN IV PUSH 09/23/16 15:45 (Reyataz) 300 mg DAILY PO 09/24/16 09:00 (Truvada 200-300 Mg) 1 tab DAILY PO 09/24/16 09:00 (Dilaudid FIELD ASSEMBLY SUPERVISOR Inj) 6 mg UNSCH IV 09/23/16 17:00 09/25/16 05:58 FIELD ASSEMBLY SUPERVISOR Dosage Infused (Pha) 1 Q8HR .XX 09/23/16 22:00 09/25/16 06:00 (Narcan Inj) 0.4 mg UNSCH PRN IV 09/23/16 17:00 Diphenhydramine HCl 25 mg 25 mg Q6H PRN IV PUSH 09/23/16 17:00 Multivitamins 10 ml/Folic Acid 1 mg/Amino Acids/ Electrolytes/ Dextrose 1,010.2 ml @ 42 mls/hr Q24H IV-CENTRAL 09/23/16 20:00 09/24/16 21:49 Potassium Chloride 100 ml @ 50 mls/hr Q2H PRN IV 09/24/16 01:15 Potassium Chloride 100 ml @ 50 mls/hr Q2H PRN IV 09/24/16 01:15 Potassium Chloride 100 ml @ 25 mls/hr UNSCH PRN IV 09/24/16 01:15 Potassium Chloride 100 ml @ 50 mls/hr Q2H PRN IV 09/24/16 01:15 (Magnesium Sulfate Inj/NS Inj) 100 ml @ 50 mls/hr UNSCH PRN IV 09/24/16 01:15 Magnesium Oxide 800 mg 800 mg UNSCH PRN PO 09/24/16 01:15 (Magnesium Sulfate Inj/NS Inj) 100 ml @ 50 mls/hr UNSCH PRN IV 09/24/16 01:15 Potassium Phosphate 2000 mg 2,000 mg Q4H PRN PO 09/24/16 01:15 (Sodium Phosphate Inj/NS 250 ml Inj) 250 ml @ 42 mls/hr UNSCH PRN IV 09/24/16 01:15 09/24/16 11:55 Potassium Phosphate 2000 mg 2,000 mg UNSCH PRN PO/TUBE 09/24/16 01:11 (Potassium Phosphate Inj/NS 250 ml Inj) 260 ml @ 42 mls/hr UNSCH PRN IV 09/24/16 01:11 (Norvir) 100 mg DAILY PO 09/24/16 09:00 (NovoLOG SUPPLEMENTAL SCALE) 1 Q6HR SQ 09/24/16 14:00 09/24/16 17:56 (D50w (Vial) Inj) 25 ml UNSCH PRN IV 09/24/16 13:45 (Glucagon Inj) 1 mg UNSCH PRN IM/SQ 09/24/16 13:45 A/P Assessment and Plan 1. COPD/Tobacco dependence, Bronchodilator, Mucolytic and incentive spirometry early ambulation 2. Moderate Protein energy malnutrition/Hyperbilirubinemia NPO NG tube in place at Low Intermittent wall suction TPN 3. Invasive Urinary Bladder Cancer s/p radical cystoprostatectomy, pelvic lymph node resection, ileal conduit, bilateral ureteral stents 09/23/16 (Dr. López Vora) 4. HIV Resume HAART meds when able to take po. Monitor for signs/symptoms of infection. Perioperative antibiotics given. 5. Acute Blood loss anemia hemoglobin post op 10 follow Hemoglobin received 3 units of PRBCs in OR 09/23 following. 6. Electrolyte Derangement replaced and following. DVT prophylaxis. Lovenox Discharge Planning Not yet cleared for discharge. Jose Andre MD Sep 25, 2016 08:37 Jose Andre MD Sep 25, 2016 08:37
[2016-09-25] MEDS: RITONAVIR 100 MG TAB PO SCH (09:56)
[2016-09-25] MEDS: EMTRICITABINE/TENOFOVIR 200 MG/300 MG TAB PO SCH (09:56)
[2016-09-25] MEDS: ATAZANAVIR 150 MG CAP PO SCH (09:56)
--- NOTE | 2016-09-25 10:53 | HHI.PR ---
Subjective Patient symptoms today Pt seen and examined. OOB in chair. Pain controlled. Objective Vital Signs Vital Signs Date Time Temp Pulse Resp B/P Pulse Ox O2 Delivery O2 Flow Rate FiO2 09/25/16 09:27 94 21 09/25/16 07:00 12 09/25/16 06:00 99.1 90 18 105/57 94 09/25/16 06:00 88 09/25/16 06:00 16 09/25/16 05:58 16 09/25/16 04:00 90 09/25/16 02:00 82 09/25/16 00:00 84 09/25/16 00:00 99.7 84 18 105/57 95 09/24/16 22:00 88 09/24/16 22:00 17 09/24/16 21:18 95 21 09/24/16 20:00 Room Air 09/24/16 20:00 99.2 84 18 109/59 95 09/24/16 20:00 84 09/24/16 18:00 81 09/24/16 16:00 87 09/24/16 16:00 99.2 87 20 121/59 100 09/24/16 14:00 86 09/24/16 14:00 15 09/24/16 12:00 89 09/24/16 12:00 98.4 89 20 107/60 100 Result Diagram: 09/25/1640 09/25/16539 Objective Remarks Abd:soft,tender on exam, no rebound, incisional tenderness Ext: neg C/C/E Pelvic Drain: blood tinged Dressing intact 09/25 Abd:soft,tender on exam, no rebound, incisional tenderness Ext: neg C/C/E Pelvic Drain: blood tinged Dressing intact Medications and IVs Current Medications Medications (Trade) Dose Ordered Sig/Alfredo Route Start Time Stop Time Status Last Admin (NS 500 ml Inj) 500 ml @ 30 mls/hr [id number] PRN IV 09/23/16 06:15 09/26/16 06:14 (Protonix Inj) 40 mg Q24H IV PUSH 09/23/16 16:00 09/24/16 15:01 (Tylenol Supp) 120 mg Q6H PRN RECTAL 09/23/16 15:45 Enoxaparin Sodium 30 mg 30 mg Q24H SQ 09/24/16 15:00 09/24/16 15:01 (Lr 1000 ml Inj) 1,000 ml @ 84 mls/hr [id number] IV 09/23/16 16:00 09/25/16 03:45 (Zofran Inj) 4 mg Q6HR PRN IV PUSH 09/23/16 15:45 (Reyataz) 300 mg DAILY PO 09/24/16 09:00 09/25/16 09:56 (Truvada 200-300 Mg) 1 tab DAILY PO 09/24/16 09:00 09/25/16 09:56 (Dilaudid INTERIOR DECORATOR PAPERHANGING Inj) 6 mg UNSCH IV 09/23/16 17:00 09/25/16 05:58 INTERIOR DECORATOR PAPERHANGING Dosage Infused (Pha) 1 Q8HR .XX 09/23/16 22:00 09/25/16 06:00 (Narcan Inj) 0.4 mg UNSCH PRN IV 09/23/16 17:00 Diphenhydramine HCl 25 mg 25 mg Q6H PRN IV PUSH 09/23/16 17:00 Multivitamins 10 ml/Folic Acid 1 mg/Amino Acids/ Electrolytes/ Dextrose 1,010.2 ml @ 42 mls/hr Q24H IV-CENTRAL 09/23/16 20:00 09/24/16 21:49 Potassium Chloride 100 ml @ 50 mls/hr Q2H PRN IV 09/24/16 01:15 Potassium Chloride 100 ml @ 50 mls/hr Q2H PRN IV 09/24/16 01:15 Potassium Chloride 100 ml @ 25 mls/hr UNSCH PRN IV 09/24/16 01:15 Potassium Chloride 100 ml @ 50 mls/hr Q2H PRN IV 09/24/16 01:15 (Magnesium Sulfate Inj/NS Inj) 100 ml @ 50 mls/hr UNSCH PRN IV 09/24/16 01:15 Magnesium Oxide 800 mg 800 mg UNSCH PRN PO 09/24/16 01:15 (Magnesium Sulfate Inj/NS Inj) 100 ml @ 50 mls/hr UNSCH PRN IV 09/24/16 01:15 Potassium Phosphate 2000 mg 2,000 mg Q4H PRN PO 09/24/16 01:15 (Sodium Phosphate Inj/NS 250 ml Inj) 250 ml @ 42 mls/hr UNSCH PRN IV 09/24/16 01:15 09/24/16 11:55 Potassium Phosphate 2000 mg 2,000 mg UNSCH PRN PO/TUBE 09/24/16 01:11 (Potassium Phosphate Inj/NS 250 ml Inj) 260 ml @ 42 mls/hr UNSCH PRN IV 09/24/16 01:11 (Norvir) 100 mg DAILY PO 09/24/16 09:00 09/25/16 09:56 (NovoLOG SUPPLEMENTAL SCALE) 1 Q6HR SQ 09/24/16 14:00 09/24/16 17:56 (D50w (Vial) Inj) 25 ml UNSCH PRN IV 09/24/16 13:45 (Glucagon Inj) 1 mg UNSCH PRN IM/SQ 09/24/16 13:45 Assessment and Plan Assessment and Plan Stable s/p cystoprostatectomy and PLND OOB to chair today Encourage I/S Continue TPN Replace P04 09/25 Stable s/p cystoprostatectomy and PLND OOB to chair Encourage I/S Continue TPN Replace P04/K+ Transfer to floor López Vora DO Sep 25, 2016 10:53
[2016-09-25] MEDS ORDERED: POTASSIUM PHOSPHATE INJ 30 MMOL in SODIUM CHLOR 0.9% 250 ML INJ 250 ML IV ONE (11:00)
[2016-09-25] MEDS: SODIUM PHOSPHATE INJ 30 MMOL in SODIUM CHLOR 0.9% 250 ML INJ 240 ML IV PRN (11:43)
[2016-09-25] MEDS: ENOXAPARIN SODIUM 30 MG/0.3 ML SYRINGE SQ SCH (15:13)
[2016-09-25] MEDS: MAGNESIUM SULFATE 1 GM PREMIX 100 ML IV SCH ×2 (15:13→16:32)
[2016-09-25] MEDS: PANTOPRAZOLE SODIUM 40 MG VIAL IV PUSH SCH (16:32)
[2016-09-25] MEDS: CLINIMIX E 4.25/25 1000 mL- </= 42 mls/hr IV-CENTRAL SCH ×3 (22:24)
[2016-09-26] VITALS: BP 131/62; PULSE 84; RESP 18; TEMP 98.8; O2SAT 95
[2016-09-26] MEDS: RESP: ALBUTEROL 2.5 MG/IPRATROPIUM 0.5 MG NEB (SCH) NEB ×4 (03:52→21:06)
[2016-09-26 03:54] VITALS: O2SAT 93
[2016-09-26] MEDS: HYDROmorphone HCL PCA 6 MG/30 ML IV SCH (05:16)
[2016-09-26] MEDS: LACTATED RINGER'S 1000 ML INJ 1,000 ML IV SCH ×3 (05:21→20:07)
[2016-09-26] MEDS: PCA - TOTAL MG DILAUDID DELIVERED PER SHIFT SCH ×3 (05:21→22:00)
[2016-09-26] MEDS: INSULIN ASPART SUPPLEMENTAL SCALE SQ SCH ×3 (05:24→18:00)
[2016-09-26 06:02] LABS: HEMATOCRIT 23.2 % (39.0-51.0); MEAN CORPUSCULAR HEMOGLOBIN 30.9 PG (27.0-34.0); MEAN CORPUSCULAR HGB CONC 35.5 % (32.0-36.0); PLATELET COUNT 175 TH/MM3 (150-450); RED BLOOD COUNT 2.67 MIL/MM3 (4.50-5.90); RED CELL DISTRIBUTION WIDTH 14.1 % (11.6-17.2); REVIEW FLAG FINAL; WHITE BLOOD COUNT 7.9 TH/MM3 (4.0-11.0)
[2016-09-26 06:40] LABS: ALKALINE PHOSPHATASE 94 U/L (45-117); ALT (GPT) 18 U/L (12-78); ANION GAP 7 MEQ/L (5-15); AST (GOT) 19 U/L (15-37); BICARBONATE 28.2 MEQ/L (21.0-32.0); BLOOD UREA NITROGEN 8 MG/DL (7-18); CHLORIDE 104 MEQ/L (98-107); GLOMERULAR FILTRATION RATE 91 ML/MIN (>89); MAGNESIUM 1.7 MG/DL (1.5-2.5); POTASSIUM 3.4 MEQ/L (3.5-5.1); SODIUM (NA) 139 MEQ/L (136-145); TOTAL BILIRUBIN ADULT 2.2 MG/DL (0.2-1.0)
[2016-09-26 08:00] VITALS: BP 106/62; PULSE 84; RESP 12; TEMP 98.2; O2SAT 97
[2016-09-26] MEDS: EMTRICITABINE/TENOFOVIR 200 MG/300 MG TAB PO SCH (09:27)
[2016-09-26] MEDS: RITONAVIR 100 MG TAB PO SCH (09:28)
[2016-09-26] MEDS: ATAZANAVIR 150 MG CAP PO SCH (09:28)
--- NOTE | 2016-09-26 10:24 | HHI.PR ---
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 He was treated with neoadjuvant chemotherapy under the care of Dr. Mckeon. He states he completed chemotherapy 2 months ago. He underwent radical cystoprostatectomy and pelvic lymph node dissection with creation of ileoconduit by Dr. Jose Vora on 09/23/16 and critical care medicine was consulted to assist with medical management postoperatively. He complains only of thirst. No flatus. Anesthesia records were reviewed. He had a routine airway. He received 5500 of crystalloid and 350 of packed red cells. Estimated blood loss was 1600. Postoperative hemoglobin is 10. Hourly urine outputs have been ~ 200 mL an hour Hospitalist notes: 09/25: Seen in his bedroom in Intensive Care unit, recommended to replace Phosphorus that was done in am with Potassium Phosphate and also to replace magnesium with 2 grams of Magnesium Sulfate, will follow electrolytes in am, discussed with nurse Miss Hoang and with patient and relative in the room. 09/26: Seen in his bedroom and discussed with nurse Miss Bledsoe, no Nausea, vomit or diarrhea, no complaint by patient, Potassium replaced. ostomy not yet working. Objective Vital Signs Date Time Temp Pulse Resp B/P Pulse Ox O2 Delivery O2 Flow Rate FiO2 09/26/16 05:21 18 09/26/16 05:16 18 09/26/16 03:54 93 21 09/26/16 00:00 98.8 84 18 131/62 95 09/25/16 20:00 Room Air 09/25/16 20:00 99.0 88 20 134/64 94 09/25/16 19:30 94 21 09/25/16 16:00 99.3 92 19 129/76 95 09/25/16 14:00 16 09/25/16 14:00 88 09/25/16 12:00 90 09/25/16 12:00 98.9 90 14 123/60 95 I/O 09/25/16 09/25/16 09/25/16 09/26/16 09/26/16 09/26/16 07:00 15:00 23:00 07:00 15:00 23:00 Intake Total 1154 ml 1051 ml 440 ml 0 ml Output Total 1175 ml 1100 ml 450 ml 1250 ml Balance -21 ml -49 ml -10 ml -1250 ml Intake Oral 440 ml 0 ml IV Total 828 ml 718 ml TPN/PPN 326 ml 333 ml Output Urine Total 1150 ml 900 ml 450 ml 1250 ml Gastric Drainage Total 0 ml 50 ml Drainage Total 25 ml 150 ml # Bowel Movements 0 0 0 0 Result Diagram: 09/26/16 0530 09/26/16 0530 Imaging Last Impressions Chest X-Ray 09/23/16 0000 Signed Impressions: Service Date/Time: Friday, September 23, 2016 15:56 - CONCLUSION: 1. NG tube placement as above and central line placement as above without pneumothorax. 2. Free intraperitoneal air is noted. Kunal Rucker MD Abdomen X-Ray 09/23/16 0000 Signed Impressions: Service Date/Time: Friday, September 23, 2016 16:01 - CONCLUSION: Postsurgical changes are noted as above. Kunal Rucker MD Procedures s/p radical cystoprostatectomy, pelvic lymph node resection, ileal conduit, bilateral ureteral stents 09/23/16 (Dr. López Vora) Other Results Laboratory Tests Test 09/23/16 09/23/16 09/23/16 09/23/16 06:29 11:50 13:50 13:56 Antibody Screen NEGATIVE Oxygen Delivery Device Blood Type A POSITIVE Crossmatch Leukocyte-Reduced Red Blood Cells Blood Gas Puncture Site DRAWN IN OR Blood Gas Patient Temperature 98.6 Blood Gas HCO3 22 mmol/L Blood Gas Base Excess -4.0 mmol/L Blood Gas Oxygen Saturation 96 % Arterial Blood pH 7.30 Arterial Blood Partial 45 mmHg Pressure CO2 Arterial Blood Partial 249 mmHg Pressure O2 Arterial Blood Oxygen Content 16.8 Vol % Arterial Blood 1.8 % Carboxyhemoglobin Arterial Blood Methemoglobin 1.4 % Blood Gas Hemoglobin 12.0 G/DL Blood Gas Inspired Oxygen 56 % Test 09/23/16 09/23/16 09/25/16 09/26/16 14:11 16:49 05:40 05:30 Blood Bank Comment Prothrombin Time 10.9 SEC Prothromb Time International 1.0 RATIO Ratio Triglycerides Level 130 MG/DL Neutrophils (%) (Auto) 68.1 % Lymphocytes (%) (Auto) 19.3 % Monocytes (%) (Auto) 9.3 % Eosinophils (%) (Auto) 2.9 % Basophils (%) (Auto) 0.4 % Neutrophils # (Auto) 5.5 TH/MM3 Lymphocytes # (Auto) 1.6 TH/MM3 Monocytes # (Auto) 0.8 TH/MM3 Eosinophils # (Auto) 0.2 TH/MM3 Basophils # (Auto) 0.0 TH/MM3 CBC Comment DIFF FINAL Differential Comment White Blood Count 7.9 TH/MM3 Red Blood Count 2.67 MIL/MM3 Hemoglobin 8.2 GM/DL Hematocrit 23.2 % Mean Corpuscular Volume 87.0 FL Mean Corpuscular Hemoglobin 30.9 PG Mean Corpuscular Hemoglobin 35.5 % Concent Red Cell Distribution Width 14.1 % Platelet Count 175 TH/MM3 Mean Platelet Volume 7.8 FL Sodium Level 139 MEQ/L Potassium Level 3.4 MEQ/L Chloride Level 104 MEQ/L Carbon Dioxide Level 28.2 MEQ/L Anion Gap 7 MEQ/L Blood Urea Nitrogen 8 MG/DL Creatinine 0.85 MG/DL Estimat Glomerular Filtration 91 ML/MIN Rate Random Glucose 176 MG/DL Calcium Level 8.6 MG/DL Phosphorus Level 2.6 MG/DL Magnesium Level 1.7 MG/DL Total Bilirubin 2.2 MG/DL Aspartate Amino Transf 19 U/L (AST/SGOT) Alanine Aminotransferase 18 U/L (ALT/SGPT) Alkaline Phosphatase 94 U/L Total Protein 5.5 GM/DL Albumin 2.3 GM/DL Objective Remarks GENERAL: Well-nourished, well-developed patient who is sitting up in bed, alert and conversant. SKIN: Warm and dry, well perfused. HEAD: Atraumatic. Normocephalic. EYES: Pupils equal and round, 3 mm and reactive bilaterally. No scleral icterus. No injection or drainage. ENT: No nasal bleeding or discharge. Mucous membranes pink and moist. NECK: Trachea midline. No JVD. CARDIOVASCULAR: Distant heart sounds. Regular rate and rhythm, sinus on the monitor, 2/6 systolic murmur RESPIRATORY: Breathing comfortably without accessory muscle use. Clear to auscultation. Breath sounds equal bilaterally. On room air VASC:Port right chest is accessed. Left subclavian central venous line in place. Right radial art line in place with distal perfusion intact. GASTROINTESTINAL: Abdomen soft, mildly tender with absent bowel sounds, dressing in place lower abdomen c/d/i. Ileostomy stoma is pink. Pascual in place. MUSCULOSKELETAL: Extremities without clubbing, cyanosis, or edema. NEUROLOGICAL: Awake and alert, oriented and conversing appropriately. No obvious cranial nerve deficits. Motor grossly within normal limits. Normal speech. Medications and IVs Current Medications Medications (Trade) Dose Ordered Sig/Alfredo Route Start Time Stop Time Status Last Admin (Protonix Inj) 40 mg Q24H IV PUSH 09/23/16 16:00 09/25/16 16:32 (Tylenol Supp) 120 mg Q6H PRN RECTAL 09/23/16 15:45 Enoxaparin Sodium 30 mg 30 mg Q24H SQ 09/24/16 15:00 09/25/16 15:13 (Lr 1000 ml Inj) 1,000 ml @ 84 mls/hr [id number] IV 09/23/16 16:00 09/26/16 05:21 (Zofran Inj) 4 mg Q6HR PRN IV PUSH 09/23/16 15:45 (Reyataz) 300 mg DAILY PO 09/24/16 09:00 09/26/16 09:28 (Truvada 200-300 Mg) 1 tab DAILY PO 09/24/16 09:00 09/26/16 09:27 (Dilaudid FRUIT CANNER Inj) 6 mg UNSCH IV 09/23/16 17:00 09/26/16 05:16 FRUIT CANNER Dosage Infused (Pha) 1 Q8HR .XX 09/23/16 22:00 09/26/16 05:21 (Narcan Inj) 0.4 mg UNSCH PRN IV 09/23/16 17:00 Diphenhydramine HCl 25 mg 25 mg Q6H PRN IV PUSH 09/23/16 17:00 (Mvi-12 Inj/ Folvite Inj/ Clinimix E 4.25/ 25) 1,010.2 ml @ 42 mls/hr Q24H IV-CENTRAL 09/23/16 20:00 09/25/16 22:24 (Norvir) 100 mg DAILY PO 09/24/16 09:00 09/26/16 09:28 (NovoLOG SUPPLEMENTAL SCALE) 1 Q6HR SQ 09/24/16 14:00 09/26/16 05:24 (D50w (Vial) Inj) 25 ml UNSCH PRN IV 09/24/16 13:45 (Glucagon Inj) 1 mg UNSCH PRN IM/SQ 09/24/16 13:45 A/P Assessment and Plan 1. COPD/Tobacco dependence, Bronchodilator, Mucolytic and incentive spirometry early ambulation 2. Moderate Protein energy malnutrition/Hyperbilirubinemia NPO NG tube in place at Low Intermittent wall suction TPN 3. Invasive Urinary Bladder Cancer s/p radical cystoprostatectomy, pelvic lymph node resection, ileal conduit, bilateral ureteral stents 09/23/16 (Dr. López Vora) 4. HIV Resume HAART meds when able to take po. Monitor for signs/symptoms of infection. Perioperative antibiotics given. 5. Acute Blood loss anemia hemoglobin post op 10 follow Hemoglobin received 3 units of PRBCs in OR 09/23 following. Hemoglobin today 8.2 6. Electrolyte Derangement replaced and following. DVT prophylaxis. Lovenox Discharge Planning Not yet cleared for discharge. Jose Andre MD Sep 26, 2016 10:24
--- NOTE | 2016-09-26 11:11 | HHI.PR ---
Subjective Patient symptoms today Pt seen and examined. Without complaints. Objective Vital Signs Vital Signs Date Time Temp Pulse Resp B/P Pulse Ox O2 Delivery O2 Flow Rate FiO2 09/26/16 05:21 18 09/26/16 05:16 18 09/26/16 03:54 93 21 09/26/16 00:00 98.8 84 18 131/62 95 09/25/16 20:00 Room Air 09/25/16 20:00 99.0 88 20 134/64 94 09/25/16 19:30 94 21 09/25/16 16:00 99.3 92 19 129/76 95 09/25/16 14:00 16 09/25/16 14:00 88 09/25/16 12:00 90 09/25/16 12:00 98.9 90 14 123/60 95 Intake & Output 09/26/16 09/26/16 07:00 19:00 Intake Total 440 ml Output Total 1700 ml Balance -1260 ml Intake Oral 440 ml Output Urine Total 1700 ml # Bowel Movements 0 Result Diagram: 09/26/1652909/26/16529 Objective Remarks Abd:soft,tender on exam, no rebound, incisional tenderness Ext: neg C/C/E Pelvic Drain: blood tinged Dressing intact 09/25 Abd:soft,tender on exam, no rebound, incisional tenderness Ext: neg C/C/E Pelvic Drain: blood tinged Dressing intact 09/26 Abd:soft,some tenderness, not distended Stoma:pink and viable Dressing and stoma intact Drains in place Ext: neg C/C/E Medications and IVs Current Medications Medications (Trade) Dose Ordered Sig/Alfredo Route Start Time Stop Time Status Last Admin (Protonix Inj) 40 mg Q24H IV PUSH 09/23/16 16:00 09/25/16 16:32 (Tylenol Supp) 120 mg Q6H PRN RECTAL 09/23/16 15:45 Enoxaparin Sodium 30 mg 30 mg Q24H SQ 09/24/16 15:00 09/25/16 15:13 (Lr 1000 ml Inj) 1,000 ml @ 84 mls/hr [id number] IV 09/23/16 16:00 09/26/16 05:21 (Zofran Inj) 4 mg Q6HR PRN IV PUSH 09/23/16 15:45 (Reyataz) 300 mg DAILY PO 09/24/16 09:00 09/26/16 09:28 (Truvada 200-300 Mg) 1 tab DAILY PO 09/24/16 09:00 09/26/16 09:27 (Dilaudid SUPPLY CHAIN LOGISTICS MANAGER Inj) 6 mg UNSCH IV 09/23/16 17:00 09/26/16 05:16 SUPPLY CHAIN LOGISTICS MANAGER Dosage Infused (Pha) 1 Q8HR .XX 09/23/16 22:00 09/26/16 05:21 (Narcan Inj) 0.4 mg UNSCH PRN IV 09/23/16 17:00 Diphenhydramine HCl 25 mg 25 mg Q6H PRN IV PUSH 09/23/16 17:00 (Mvi-12 Inj/ Folvite Inj/ Clinimix E ) 1,010.2 ml @ 42 mls/hr Q24H IV-CENTRAL 09/23/16 20:00 09/25/16 22:24 (Norvir) 100 mg DAILY PO 09/24/16 09:00 09/26/16 09:28 (NovoLOG SUPPLEMENTAL SCALE) 1 Q6HR SQ 09/24/16 14:00 09/26/16 05:24 (D50w (Vial) Inj) 25 ml UNSCH PRN IV 09/24/16 13:45 (Glucagon Inj) 1 mg UNSCH PRN IM/SQ 09/24/16 13:45 Assessment and Plan Assessment and Plan Stable s/p cystoprostatectomy and PLND OOB to chair today Encourage I/S Continue TPN Replace P04 09/25 Stable s/p cystoprostatectomy and PLND OOB to chair Encourage I/S Continue TPN Replace P04/K+ Transfer to floor 09/26 Stable s/p cystoprostatectomy and PLND POD#3 Replace K OOB to chair Path review with patient Hbg stable at 8.2. López Vora DO Sep 26, 2016 11:11
[2016-09-26] MEDS ORDERED: POTASSIUM CHLORIDE INJ 30 MEQ in SODIUM CHLORIDE 0.9% INJ 100 ML IV-CENTRAL SCH ×2 (11:15→13:00)
[2016-09-26 12:00] VITALS: BP 106/65; PULSE 96; RESP 14; TEMP 98.2; O2SAT 94
[2016-09-26] MEDS: PANTOPRAZOLE SODIUM 40 MG VIAL IV PUSH SCH (15:23)
[2016-09-26] MEDS: ENOXAPARIN SODIUM 30 MG/0.3 ML SYRINGE SQ SCH (15:23)
[2016-09-26 16:00] VITALS: BP 109/65; PULSE 84; RESP 16; TEMP 97.6; O2SAT 95
[2016-09-26] MEDS: CLINIMIX E 4.25/25 1000 mL- </= 42 mls/hr IV-CENTRAL SCH ×3 (19:57)
[2016-09-26 20:31] VITALS: BP 109/63; PULSE 89; RESP 16; TEMP 99.2; O2SAT 96
[2016-09-27] VITALS (9 sets, daily range): BP systolic 94–120; BP diastolic 51–68; PULSE 81–93; RESP 16–18; TEMP 98.1–100; O2SAT 93–98
[2016-09-27 04:53] LABS: HEMATOCRIT 23.5 % (39.0-51.0); MEAN CELL VOLUME 86.7 FL (80.0-100.0); MEAN CORPUSCULAR HEMOGLOBIN 29.9 PG (27.0-34.0); MEAN CORPUSCULAR HGB CONC 34.5 % (32.0-36.0); PLATELET COUNT 193 TH/MM3 (150-450); RED BLOOD COUNT 2.71 MIL/MM3 (4.50-5.90); RED CELL DISTRIBUTION WIDTH 13.8 % (11.6-17.2); REVIEW FLAG FINAL
[2016-09-27 05:16] LABS: ANION GAP 6 MEQ/L (5-15); AST (GOT) 24 U/L (15-37); BICARBONATE 27.8 MEQ/L (21.0-32.0); BLOOD UREA NITROGEN 8 MG/DL (7-18); CHLORIDE 104 MEQ/L (98-107); GLOMERULAR FILTRATION RATE 101 ML/MIN (>89); MAGNESIUM 1.6 MG/DL (1.5-2.5); POTASSIUM 3.9 MEQ/L (3.5-5.1); SODIUM (NA) 138 MEQ/L (136-145)
[2016-09-27 05:20] LABS: ALKALINE PHOSPHATASE 134 U/L (45-117); ALT (GPT) 23 U/L (12-78); TOTAL BILIRUBIN ADULT 2.6 MG/DL (0.2-1.0)
[2016-09-27] MEDS: PCA - TOTAL MG DILAUDID DELIVERED PER SHIFT SCH ×2 (05:33→21:39)
[2016-09-27] MEDS: INSULIN ASPART SUPPLEMENTAL SCALE SQ SCH ×4 (05:57→18:21)
--- NOTE | 2016-09-27 08:24 | HHI.PR ---
Subjective Patient symptoms today Pt feels well. Pain controlled. Doing well. Objective Vital Signs Vital Signs Date Time Temp Pulse Resp B/P Pulse Ox O2 Delivery O2 Flow Rate FiO2 09/27/16 08:00 98.6 81 17 106/61 95 09/27/16 05:33 20 09/27/16 04:29 98.1 90 18 106/59 98 09/27/16 04:10 98 09/27/16 00:04 100.0 87 16 94/51 94 09/26/16 22:00 20 09/26/16 20:31 99.2 89 16 109/63 96 09/26/16 16:00 97.6 84 16 109/65 95 09/26/16 14:00 18 09/26/16 12:00 98.2 96 14 106/65 94 Intake & Output 09/27/16 09/27/16 07:00 19:00 Intake Total 4673 ml Output Total 1800 ml Balance 2873 ml IV Total 3037 ml TPN/PPN 1636 ml Output Urine Total 1800 ml Result Diagram: 09/27/1641909/27/16419 Objective Remarks Abd:soft,tender on exam, no rebound, incisional tenderness Ext: neg C/C/E Pelvic Drain: blood tinged Dressing intact 09/25 Abd:soft,tender on exam, no rebound, incisional tenderness Ext: neg C/C/E Pelvic Drain: blood tinged Dressing intact 09/26 Abd:soft,some tenderness, not distended Stoma:pink and viable Dressing and stoma intact Drains in place Ext: neg C/C/E 09/27 Abd:soft,some tenderness, not distended Stoma:pink and viable Dressing and stoma intact Drains in place Ext: neg C/C/E Medications and IVs Current Medications Medications (Trade) Dose Ordered Sig/Alfredo Route Start Time Stop Time Status Last Admin (Protonix Inj) 40 mg Q24H IV PUSH 09/23/16 16:00 09/26/16 15:23 (Tylenol Supp) 120 mg Q6H PRN RECTAL 09/23/16 15:45 Enoxaparin Sodium 30 mg 30 mg Q24H SQ 09/24/16 15:00 09/26/16 15:23 (Lr 1000 ml Inj) 1,000 ml @ 84 mls/hr [id number] IV 09/23/16 16:00 09/26/16 20:07 (Zofran Inj) 4 mg Q6HR PRN IV PUSH 09/23/16 15:45 (Reyataz) 300 mg DAILY PO 09/24/16 09:00 09/26/16 09:28 (Truvada 200-300 Mg) 1 tab DAILY PO 09/24/16 09:00 09/26/16 09:27 (Dilaudid RECRUITMENT AND OUTREACH ASSISTANT Inj) 6 mg UNSCH IV 09/23/16 17:00 09/26/16 05:16 RECRUITMENT AND OUTREACH ASSISTANT Dosage Infused (Pha) 1 Q8HR .XX 09/23/16 22:00 09/27/16 05:33 (Narcan Inj) 0.4 mg UNSCH PRN IV 09/23/16 17:00 Diphenhydramine HCl 25 mg 25 mg Q6H PRN IV PUSH 09/23/16 17:00 (Mvi-12 Inj/ Folvite Inj/ Clinimix E 4.) 1,010.2 ml @ 42 mls/hr Q24H IV-CENTRAL 09/23/16 20:00 09/26/16 19:57 (Norvir) 100 mg DAILY PO 09/24/16 09:00 09/26/16 09:28 (NovoLOG SUPPLEMENTAL SCALE) 1 Q6HR SQ 09/24/16 14:00 09/27/16 05:57 (D50w (Vial) Inj) 25 ml UNSCH PRN IV 09/24/16 13:45 (Glucagon Inj) 1 mg UNSCH PRN IM/SQ 09/24/16 13:45 Assessment and Plan Assessment and Plan Stable s/p cystoprostatectomy and PLND OOB to chair today Encourage I/S Continue TPN Replace P04 09/25 Stable s/p cystoprostatectomy and PLND OOB to chair Encourage I/S Continue TPN Replace P04/K+ Transfer to floor 09/26 Stable s/p cystoprostatectomy and PLND POD#3 Replace K OOB to chair Path review with patient Hbg stable at 8.2. 09/27 Stable s/p cystoprostatectomy and PLND POD#4 D/C zacarias catheter OOB/Ambulate Labs stable López Vora DO Sep 27, 2016 08:24
[2016-09-27] MEDS: EMTRICITABINE/TENOFOVIR 200 MG/300 MG TAB PO SCH (09:05)
[2016-09-27] MEDS: RITONAVIR 100 MG TAB PO SCH (09:05)
[2016-09-27] MEDS: ATAZANAVIR 150 MG CAP PO SCH (09:06)
[2016-09-27] MEDS: RESP: ALBUTEROL 2.5 MG/IPRATROPIUM 0.5 MG NEB (SCH) NEB ×3 (09:31→20:21)
[2016-09-27] MEDS: HYDROmorphone HCL PCA 6 MG/30 ML IV SCH (09:55)
--- NOTE | 2016-09-27 10:12 | HHI.PR ---
Subjective Remarks investor relations specialist Notes: 61-year-old man with past medical history of HIV diagnosed 20 years ago on HAART , COPD, tobacco abuse who was diagnosed with muscle invasive bladder cancer in April of 2016. He was treated with neoadjuvant chemotherapy under the care of Dr. Mckeon. He states he completed chemotherapy 2 months ago. He underwent radical cystoprostatectomy and pelvic lymph node dissection with creation of ileo conduit by Dr. Jose Vora on 09/23/16 and critical care medicine was consulted to assist with medical management postoperatively. Hospitalist notes: 09/25: Seen in his bedroom in Intensive Care unit, recommended to replace Phosphorus that was done in am with Potassium Phosphate and also to replace magnesium with 2 grams of Magnesium Sulfate, will follow electrolytes in am. 09/26: Potassium replaced. 09/27: seen in his bedroom in the presence of nurse Miss Bledsoe, Potassium chloride replaced and today will replace Magnesium, Ileal conduit working fine ambulating well, recommended today by Urology specialist to remove Pascual cath. Objective Vital Signs Date Time Temp Pulse Resp B/P Pulse Ox O2 Delivery O2 Flow Rate FiO2 09/27/16 09:55 18 09/27/16 08:00 98.6 81 17 106/61 95 09/27/16 05:33 20 09/27/16 04:29 98.1 90 18 106/59 98 09/27/16 04:10 98 09/27/16 00:04 100.0 87 16 94/51 94 09/26/16 22:00 20 09/26/16 20:31 99.2 89 16 109/63 96 09/26/16 16:00 97.6 84 16 109/65 95 09/26/16 14:00 18 09/26/16 12:00 98.2 96 14 106/65 94 I/O 09/26/16 09/26/16 09/26/16 09/27/16 09/27/16 09/27/16 07:00 15:00 23:00 07:00 15:00 23:00 Intake Total 0 ml 1154 ml 3814 ml 859 ml Output Total 1250 ml 1750 ml 800 ml 1000 ml Balance -1250 ml -596 ml 3014 ml -141 ml Intake Oral 0 ml 0 ml IV Total 788 ml 2483 ml 554 ml TPN/PPN 366 ml 1331 ml 305 ml Output Urine Total 1250 ml 1650 ml 800 ml 1000 ml Drainage Total 100 ml # Bowel Movements 0 Result Diagram: 09/27/16 0420 09/27/16 0420 Imaging Last Impressions Chest X-Ray 09/23/16 0000 Signed Impressions: Service Date/Time: Friday, September 23, 2016 15:56 - CONCLUSION: 1. NG tube placement as above and central line placement as above without pneumothorax. 2. Free intraperitoneal air is noted. Kunal Rucker MD Abdomen X-Ray 09/23/16 0000 Signed Impressions: Service Date/Time: Friday, September 23, 2016 16:01 - CONCLUSION: Postsurgical changes are noted as above. Kunal Rucker MD Procedures s/p radical cystoprostatectomy, pelvic lymph node resection, ileal conduit, bilateral ureteral stents 09/23/16 (Dr. López Vora) Other Results Laboratory Tests Test 09/23/16 09/23/16 09/23/16 09/23/16 06:29 11:50 13:50 13:56 Antibody Screen NEGATIVE Oxygen Delivery Device Blood Type A POSITIVE Crossmatch Leukocyte-Reduced Red Blood Cells Blood Gas Puncture Site DRAWN IN OR Blood Gas Patient Temperature 98.6 Blood Gas HCO3 22 mmol/L Blood Gas Base Excess -4.0 mmol/L Blood Gas Oxygen Saturation 96 % Arterial Blood pH 7.30 Arterial Blood Partial 45 mmHg Pressure CO2 Arterial Blood Partial 249 mmHg Pressure O2 Arterial Blood Oxygen Content 16.8 Vol % Arterial Blood 1.8 % Carboxyhemoglobin Arterial Blood Methemoglobin 1.4 % Blood Gas Hemoglobin 12.0 G/DL Blood Gas Inspired Oxygen 56 % Test 09/23/16 09/23/16 09/25/16 09/27/16 14:11 16:49 05:40 04:20 Blood Bank Comment Prothrombin Time 10.9 SEC Prothromb Time International 1.0 RATIO Ratio Triglycerides Level 130 MG/DL Neutrophils (%) (Auto) 68.1 % Lymphocytes (%) (Auto) 19.3 % Monocytes (%) (Auto) 9.3 % Eosinophils (%) (Auto) 2.9 % Basophils (%) (Auto) 0.4 % Neutrophils # (Auto) 5.5 TH/MM3 Lymphocytes # (Auto) 1.6 TH/MM3 Monocytes # (Auto) 0.8 TH/MM3 Eosinophils # (Auto) 0.2 TH/MM3 Basophils # (Auto) 0.0 TH/MM3 CBC Comment DIFF FINAL Differential Comment White Blood Count 7.0 TH/MM3 Red Blood Count 2.71 MIL/MM3 Hemoglobin 8.1 GM/DL Hematocrit 23.5 % Mean Corpuscular Volume 86.7 FL Mean Corpuscular Hemoglobin 29.9 PG Mean Corpuscular Hemoglobin 34.5 % Concent Red Cell Distribution Width 13.8 % Platelet Count 193 TH/MM3 Mean Platelet Volume 7.7 FL Sodium Level 138 MEQ/L Potassium Level 3.9 MEQ/L Chloride Level 104 MEQ/L Carbon Dioxide Level 27.8 MEQ/L Anion Gap 6 MEQ/L Blood Urea Nitrogen 8 MG/DL Creatinine 0.78 MG/DL Estimat Glomerular Filtration 101 ML/MIN Rate Random Glucose 131 MG/DL Calcium Level 8.6 MG/DL Phosphorus Level 3.2 MG/DL Magnesium Level 1.6 MG/DL Total Bilirubin 2.6 MG/DL Aspartate Amino Transf 24 U/L (AST/SGOT) Alanine Aminotransferase 23 U/L (ALT/SGPT) Alkaline Phosphatase 134 U/L Total Protein 5.5 GM/DL Albumin 2.3 GM/DL Objective Remarks GENERAL: Well-nourished, well-developed patient who is sitting up in bed, alert and conversant. SKIN: Warm and dry, well perfused. HEAD: Atraumatic. Normocephalic. EYES: Pupils equal and round, 3 mm and reactive bilaterally. No scleral icterus. No injection or drainage. ENT: No nasal bleeding or discharge. Mucous membranes pink and moist. NECK: Trachea midline. No JVD. CARDIOVASCULAR: Distant heart sounds. Regular rate and rhythm, sinus on the monitor, 2/6 systolic murmur RESPIRATORY: Breathing comfortably without accessory muscle use. Clear to auscultation. Breath sounds equal bilaterally. On room air VASC:Port right chest is accessed. Left subclavian central venous line in place. Right radial art line in place with distal perfusion intact. GASTROINTESTINAL: Abdomen soft, mildly tender with absent bowel sounds, dressing in place lower abdomen c/d/i. Ileostomy stoma is pink. MUSCULOSKELETAL: Extremities without clubbing, cyanosis, or edema. NEUROLOGICAL: Awake and alert, oriented and conversing appropriately. No obvious cranial nerve deficits. Motor grossly within normal limits. Normal speech. Medications and IVs Current Medications Medications (Trade) Dose Ordered Sig/Alfredo Route Start Time Stop Time Status Last Admin (Protonix Inj) 40 mg Q24H IV PUSH 09/23/16 16:00 09/26/16 15:23 (Tylenol Supp) 120 mg Q6H PRN RECTAL 09/23/16 15:45 Enoxaparin Sodium 30 mg 30 mg Q24H SQ 09/24/16 15:00 09/26/16 15:23 (Lr 1000 ml Inj) 1,000 ml @ 84 mls/hr [id number] IV 09/23/16 16:00 09/26/16 20:07 (Zofran Inj) 4 mg Q6HR PRN IV PUSH 09/23/16 15:45 (Reyataz) 300 mg DAILY PO 09/24/16 09:00 09/27/16 09:06 (Truvada 200-300 Mg) 1 tab DAILY PO 09/24/16 09:00 09/27/16 09:05 (Dilaudid MAT PACKER Inj) 6 mg UNSCH IV 09/23/16 17:00 09/27/16 09:55 MAT PACKER Dosage Infused (Pha) 1 Q8HR .XX 09/23/16 22:00 09/27/16 05:33 (Narcan Inj) 0.4 mg UNSCH PRN IV 09/23/16 17:00 Diphenhydramine HCl 25 mg 25 mg Q6H PRN IV PUSH 09/23/16 17:00 (Mvi-12 Inj/ Folvite Inj/ Clinimix E 4.25/ 25) 1,010.2 ml @ 42 mls/hr Q24H IV-CENTRAL 09/23/16 20:00 09/26/16 19:57 (Norvir) 100 mg DAILY PO 09/24/16 09:00 09/27/16 09:05 (NovoLOG SUPPLEMENTAL SCALE) 1 Q6HR SQ 09/24/16 14:00 09/27/16 05:57 (D50w (Vial) Inj) 25 ml UNSCH PRN IV 09/24/16 13:45 (Glucagon Inj) 1 mg UNSCH PRN IM/SQ 09/24/16 13:45 A/P Assessment and Plan 1. COPD/Tobacco dependence, Bronchodilator, Mucolytic and incentive spirometry early ambulation 2. Moderate Protein energy malnutrition/Hyperbilirubinemia NPO, TPN continue. 3. Invasive Urinary Bladder Cancer s/p radical cystoprostatectomy, pelvic lymph node resection, ileal conduit, bilateral ureteral stents 09/23/16 (Dr. López Vora) 4. HIV Resume HAART meds when able to take po. Monitor for signs/symptoms of infection. Perioperative antibiotics given. 5. Acute Blood loss anemia hemoglobin post op 10 follow Hemoglobin received 3 units of PRBCs in OR 09/23 following. Hemoglobin today 8.1 will give Iron IV for three days. 6. Electrolyte Derangement replaced and following. DVT prophylaxis. Lovenox Discharge Planning Not yet cleared for discharge. Jose Andre MD Sep 27, 2016 10:12
[2016-09-27] MEDS: MAGNESIUM SULFATE 1 GM PREMIX 100 ML IV SCH ×2 (11:23→12:23)
[2016-09-27] MEDS: IRON SUCROSE INJ 100 MG in SODIUM CHLORIDE 0.9% INJ 100 ML IV SCH (11:24)
[2016-09-27] MEDS: PANTOPRAZOLE SODIUM 40 MG VIAL IV PUSH SCH (17:08)
[2016-09-27] MEDS: ENOXAPARIN SODIUM 30 MG/0.3 ML SYRINGE SQ SCH (17:08)
[2016-09-27] MEDS: LACTATED RINGER'S 1000 ML INJ 1,000 ML IV SCH (17:09)
[2016-09-27] MEDS: CLINIMIX E 4.25/25 1000 mL- </= 42 mls/hr IV-CENTRAL SCH ×3 (21:07)
[2016-09-28 00:30] VITALS: BP 96/59; PULSE 97; RESP 17; TEMP 100.1; O2SAT 96
[2016-09-28] MEDS: LACTATED RINGER'S 1000 ML INJ 1,000 ML IV SCH ×2 (02:52→08:00)
[2016-09-28] MEDS: RESP: ALBUTEROL 2.5 MG/IPRATROPIUM 0.5 MG NEB (SCH) NEB (03:30)
[2016-09-28 04:07] VITALS: BP 107/58; PULSE 95; RESP 17; TEMP 99.9; O2SAT 98
[2016-09-28 05:57] LABS: ANION GAP 6 MEQ/L (5-15); BICARBONATE 27.3 MEQ/L (21.0-32.0); BLOOD UREA NITROGEN 9 MG/DL (7-18); CHLORIDE 102 MEQ/L (98-107); GLOMERULAR FILTRATION RATE 91 ML/MIN (>89); POTASSIUM 4.3 MEQ/L (3.5-5.1); SODIUM (NA) 135 MEQ/L (136-145)
[2016-09-28] MEDS: PCA - TOTAL MG DILAUDID DELIVERED PER SHIFT SCH ×3 (06:00→21:40)
[2016-09-28] MEDS: INSULIN ASPART SUPPLEMENTAL SCALE SQ SCH ×5 (06:00→23:52)
[2016-09-28 06:01] LABS: ALKALINE PHOSPHATASE 177 U/L (45-117); ALT (GPT) 29 U/L (12-78); AST (GOT) 23 U/L (15-37); TOTAL BILIRUBIN ADULT 2.7 MG/DL (0.2-1.0)
[2016-09-28 08:00] VITALS: BP 105/60; PULSE 93; RESP 17; TEMP 99.4; O2SAT 96
[2016-09-28] MEDS: EMTRICITABINE/TENOFOVIR 200 MG/300 MG TAB PO SCH (08:00)
[2016-09-28] MEDS: RITONAVIR 100 MG TAB PO SCH (08:00)
[2016-09-28] MEDS: IRON SUCROSE INJ 100 MG in SODIUM CHLORIDE 0.9% INJ 100 ML IV SCH (08:00)
[2016-09-28] MEDS: ATAZANAVIR 150 MG CAP PO SCH (08:00)
--- NOTE | 2016-09-28 09:29 | HHI.PR ---
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 He was treated with neoadjuvant chemotherapy under the care of Dr. Mckeon. He states he completed chemotherapy 2 months ago. He underwent radical cystoprostatectomy and pelvic lymph node dissection with creation of ileo conduit by Dr. Jose Vora on 09/23/16 and critical care medicine was consulted to assist with medical management postoperatively. Hospitalist notes: 09/25: Seen in his bedroom in Intensive Care unit, recommended to replace Phosphorus that was done in am with Potassium Phosphate and also to replace magnesium with 2 grams of Magnesium Sulfate, will follow electrolytes in am. 09/26: Potassium replaced. 09/27: Potassium chloride replaced and today will replace Magnesium, Ileal conduit working fine ambulating well. 09/28: Seen in his bedroom, discussed with him and his Brother, continue with NG tube at slow suction, No Nausea, vomit or diarrhea. Objective Vital Signs Date Time Temp Pulse Resp B/P Pulse Ox O2 Delivery O2 Flow Rate FiO2 09/28/16 08:00 99.4 93 17 105/60 96 09/28/16 06:00 18 09/28/16 04:07 99.9 95 17 107/58 98 09/28/16 00:30 100.1 97 17 96/59 96 09/27/16 21:39 18 09/27/16 20:24 93 21 09/27/16 20:00 99.6 81 17 112/67 98 09/27/16 16:00 99.8 91 16 117/64 95 09/27/16 15:33 95 21 09/27/16 12:00 98.8 93 17 120/68 95 09/27/16 09:55 18 I/O 09/27/16 09/27/16 09/27/16 09/28/16 09/28/16 09/28/16 07:00 15:00 23:00 07:00 15:00 23:00 Intake Total 859 ml 1024 ml 1875 ml 1109 ml Output Total 1000 ml 1780 ml 1000 ml 1200 ml Balance -141 ml -756 ml 875 ml -91 ml Intake Oral 0 ml IV Total 554 ml 680 ml 1319 ml 767 ml TPN/PPN 305 ml 344 ml 556 ml 342 ml Output Urine Total 1000 ml 1750 ml 1000 ml 1200 ml Gastric Drainage Total 0 ml Drainage Total 30 ml # Bowel Movements 0 Result Diagram: 09/27/16 0420 09/28/16 0500 Imaging Last Impressions Chest X-Ray 09/23/16 0000 Signed Impressions: Service Date/Time: Friday, September 23, 2016 15:56 - CONCLUSION: 1. NG tube placement as above and central line placement as above without pneumothorax. 2. Free intraperitoneal air is noted. Kunal Rucker MD Abdomen X-Ray 09/23/16 0000 Signed Impressions: Service Date/Time: Friday, September 23, 2016 16:01 - CONCLUSION: Postsurgical changes are noted as above. Kunal Rucker MD Procedures s/p radical cystoprostatectomy, pelvic lymph node resection, ileal conduit, bilateral ureteral stents 09/23/16 (Dr. López Vora) Other Results Vital Signs Date Time Temp Pulse Resp B/P Pulse Ox O2 Delivery O2 Flow Rate FiO2 09/28/16 08:00 99.4 93 17 105/60 96 09/28/16 06:00 18 09/28/16 04:07 99.9 95 17 107/58 98 09/28/16 00:30 100.1 97 17 96/59 96 09/27/16 21:39 18 09/27/16 20:24 93 21 09/27/16 20:00 99.6 81 17 112/67 98 09/27/16 16:00 99.8 91 16 117/64 95 09/27/16 15:33 95 21 09/27/16 12:00 98.8 93 17 120/68 95 09/27/16 09:55 18 Objective Remarks GENERAL: Well-nourished, No acute distress. SKIN: Warm and dry, well perfused. HEAD: Atraumatic. Normocephalic. EYES: Pupils equal and round, 3 mm and reactive bilaterally. No scleral icterus. No injection or drainage. ENT: No nasal bleeding or discharge. Mucous membranes pink and moist. NG tube in place. NECK: Trachea midline. No JVD. CARDIOVASCULAR: Distant heart sounds. Regular rate and rhythm. RESPIRATORY: Clear to auscultation bilateral, no wheezing or crackles. GASTROINTESTINAL: Abdomen soft, mildly tender with absent bowel sounds, dressing in place lower abdomen c/d/i. Ileostomy stoma is pink. MUSCULOSKELETAL: Extremities without clubbing, cyanosis, or edema. NEUROLOGICAL: Awake and alert, oriented and conversing appropriately. No obvious cranial nerve deficits. Motor grossly within normal limits. Normal speech. Medications and IVs Current Medications Medications (Trade) Dose Ordered Sig/Alfredo Route Start Time Stop Time Status Last Admin (Protonix Inj) 40 mg Q24H IV PUSH 09/23/16 16:00 09/27/16 17:08 (Tylenol Supp) 120 mg Q6H PRN RECTAL 09/23/16 15:45 Enoxaparin Sodium 30 mg 30 mg Q24H SQ 09/24/16 15:00 09/27/16 17:08 (Lr 1000 ml Inj) 1,000 ml @ 84 mls/hr [id number] IV 09/23/16 16:00 09/28/16 08:00 (Zofran Inj) 4 mg Q6HR PRN IV PUSH 09/23/16 15:45 (Reyataz) 300 mg DAILY PO 09/24/16 09:00 09/28/16 08:00 (Truvada 200-300 Mg) 1 tab DAILY PO 09/24/16 09:00 09/28/16 08:00 (Dilaudid PROCESS EXCELLENCE MANAGER Inj) 6 mg UNSCH IV 09/23/16 17:00 09/27/16 09:55 PROCESS EXCELLENCE MANAGER Dosage Infused (Pha) 1 Q8HR .XX 09/23/16 22:00 09/28/16 06:00 (Narcan Inj) 0.4 mg UNSCH PRN IV 09/23/16 17:00 Diphenhydramine HCl 25 mg 25 mg Q6H PRN IV PUSH 09/23/16 17:00 (Mvi-12 Inj/ Folvite Inj/ Clinimix E 4.25/ 25) 1,010.2 ml @ 42 mls/hr Q24H IV-CENTRAL 09/23/16 20:00 09/27/16 21:07 (Norvir) 100 mg DAILY PO 09/24/16 09:00 09/28/16 08:00 (NovoLOG SUPPLEMENTAL SCALE) 1 Q6HR SQ 09/24/16 14:00 09/28/16 00:00 (D50w (Vial) Inj) 25 ml UNSCH PRN IV 09/24/16 13:45 Glucagon 1 mg 1 mg UNSCH PRN IM/SQ 09/24/16 13:45 (Venofer Inj/NS Inj) 105 ml @ 105 mls/hr DAILY IV 09/27/16 11:00 09/29/16 09:59 09/28/16 08:00 A/P Assessment and Plan 1. COPD/Tobacco dependence, Bronchodilator, Mucolytic and incentive spirometry early ambulation 2. Moderate Protein energy malnutrition/Hyperbilirubinemia NPO, TPN continue. 3. Invasive Urinary Bladder Cancer s/p radical cystoprostatectomy, pelvic lymph node resection, ileal conduit, bilateral ureteral stents 09/23/16 (Dr. López Vora) 4. HIV Resume HAART meds when able to take po. Monitor for signs/symptoms of infection. Perioperative antibiotics given. 5. Acute Blood loss anemia hemoglobin post op 10 follow Hemoglobin received 3 units of PRBCs in OR 09/23 following. Hemoglobin today 8.1 complete Iron IV for three days. 6. Electrolyte Derangement replaced and following. DVT prophylaxis. Lovenox Discussed with Patient, his Brother and Nurse Discharge Planning As per Attending physician. Jose Andre MD Sep 28, 2016 09:29 Jose Andre MD Sep 28, 2016 09:29
--- NOTE | 2016-09-28 09:40 | HHI.PR ---
Subjective Patient symptoms today Pt seen and examined. Feels well. Passed gas. Objective Vital Signs Vital Signs Date Time Temp Pulse Resp B/P Pulse Ox O2 Delivery O2 Flow Rate FiO2 09/28/16 08:00 99.4 93 17 105/60 96 09/28/16 06:00 18 09/28/16 04:07 99.9 95 17 107/58 98 09/28/16 00:30 100.1 97 17 96/59 96 09/27/16 21:39 18 09/27/16 20:24 93 21 09/27/16 20:00 99.6 81 17 112/67 98 09/27/16 16:00 99.8 91 16 117/64 95 09/27/16 15:33 95 21 09/27/16 12:00 98.8 93 17 120/68 95 09/27/16 09:55 18 Intake & Output 09/28/16 09/28/16 07:00 19:00 Intake Total 2984 ml Output Total 2200 ml Balance 784 ml IV Total 2086 ml TPN/PPN 898 ml Output Urine Total 2200 ml Result Diagram: 09/27/16 0420 09/28/16 0500 Objective Remarks Abd:soft,tender on exam, no rebound, incisional tenderness Ext: neg C/C/E Pelvic Drain: blood tinged Dressing intact 09/25 Abd:soft,tender on exam, no rebound, incisional tenderness Ext: neg C/C/E Pelvic Drain: blood tinged Dressing intact 09/26 Abd:soft,some tenderness, not distended Stoma:pink and viable Dressing and stoma intact Drains in place Ext: neg C/C/E 09/27 Abd:soft,some tenderness, not distended Stoma:pink and viable Dressing and stoma intact Drains in place Ext: neg C/C/E 09/28 Abd:soft,some tenderness, not distended Stoma:pink and viable Dressing and stoma intact Drains in place Ext: neg C/C/E Medications and IVs Current Medications Medications (Trade) Dose Ordered Sig/Alfredo Route Start Time Stop Time Status Last Admin (Protonix Inj) 40 mg Q24H IV PUSH 09/23/16 16:00 09/27/16 17:08 (Tylenol Supp) 120 mg Q6H PRN RECTAL 09/23/16 15:45 Enoxaparin Sodium 30 mg 30 mg Q24H SQ 09/24/16 15:00 09/27/16 17:08 (Lr 1000 ml Inj) 1,000 ml @ 84 mls/hr [id number] IV 09/23/16 16:00 09/28/16 08:00 (Zofran Inj) 4 mg Q6HR PRN IV PUSH 09/23/16 15:45 (Reyataz) 300 mg DAILY PO 09/24/16 09:00 09/28/16 08:00 (Truvada 200-300 Mg) 1 tab DAILY PO 09/24/16 09:00 09/28/16 08:00 (Dilaudid FIELD GAUGER Inj) 6 mg UNSCH IV 09/23/16 17:00 09/27/16 09:55 FIELD GAUGER Dosage Infused (Pha) 1 Q8HR .XX 09/23/16 22:00 09/28/16 06:00 (Narcan Inj) 0.4 mg UNSCH PRN IV 09/23/16 17:00 Diphenhydramine HCl 25 mg 25 mg Q6H PRN IV PUSH 09/23/16 17:00 (Mvi-12 Inj/ Folvite Inj/ Clinimix E 4./ ) 1,010.2 ml @ 42 mls/hr Q24H IV-CENTRAL 09/23/16 20:00 09/27/16 21:07 (Norvir) 100 mg DAILY PO 09/24/16 09:00 09/28/16 08:00 (NovoLOG SUPPLEMENTAL SCALE) 1 Q6HR SQ 09/24/16 14:00 09/28/16 00:00 (D50w (Vial) Inj) 25 ml UNSCH PRN IV 09/24/16 13:45 Glucagon 1 mg 1 mg UNSCH PRN IM/SQ 09/24/16 13:45 (Venofer Inj/NS Inj) 105 ml @ 105 mls/hr DAILY IV 09/27/16 11:00 09/29/16 09:59 09/28/16 08:00 Assessment and Plan Assessment and Plan Stable s/p cystoprostatectomy and PLND OOB to chair today Encourage I/S Continue TPN Replace P04 09/25 Stable s/p cystoprostatectomy and PLND OOB to chair Encourage I/S Continue TPN Replace P04/K+ Transfer to floor 4/14 Stable s/p cystoprostatectomy and PLND POD#3 Replace K OOB to chair Path review with patient Hbg stable at 8.2. 09/27 Stable s/p cystoprostatectomy and PLND POD#4 D/C zacarias catheter OOB/Ambulate Labs stable 4/16 Stable s/p cystoprostatectomy and PLND POD#5 Passed gas; will d/c NGT OOB/Ambulate López Vora DO Sep 28, 2016 09:40
[2016-09-28 12:00] VITALS: BP 102/57; PULSE 94; RESP 16; TEMP 99.1; O2SAT 93
[2016-09-28] MEDS: ENOXAPARIN SODIUM 30 MG/0.3 ML SYRINGE SQ SCH (14:06)
[2016-09-28 16:00] VITALS: BP 108/55; PULSE 92; RESP 17; TEMP 97.7; O2SAT 93
[2016-09-28] MEDS: PANTOPRAZOLE SODIUM 40 MG VIAL IV PUSH SCH (16:00)
[2016-09-28 20:00] VITALS: BP 107/57; PULSE 100; RESP 16; TEMP 98.8; O2SAT 100
[2016-09-28] MEDS: CLINIMIX E 4.25/25 1000 mL- </= 42 mls/hr IV-CENTRAL SCH ×3 (21:40)
[2016-09-29 00:56] VITALS: BP 106/59; PULSE 92; RESP 17; TEMP 98.9; O2SAT 97
[2016-09-29] MEDS: HYDROmorphone HCL PCA 6 MG/30 ML IV SCH (02:02)
[2016-09-29 04:45] VITALS: BP 96/58; PULSE 83; RESP 17; TEMP 98.7; O2SAT 97
[2016-09-29] MEDS: PCA - TOTAL MG DILAUDID DELIVERED PER SHIFT SCH (06:00)
[2016-09-29] MEDS: INSULIN ASPART SUPPLEMENTAL SCALE SQ SCH ×3 (06:00→17:34)
[2016-09-29] MEDS: LACTATED RINGER'S 1000 ML INJ 1,000 ML IV SCH ×2 (06:24→15:24)
[2016-09-29 07:23] LABS: ALKALINE PHOSPHATASE 193 U/L (45-117); ALT (GPT) 38 U/L (12-78); ANION GAP 5 MEQ/L (5-15); AST (GOT) 26 U/L (15-37); BICARBONATE 28.1 MEQ/L (21.0-32.0); BLOOD UREA NITROGEN 13 MG/DL (7-18); CHLORIDE 103 MEQ/L (98-107); GLOMERULAR FILTRATION RATE 99 ML/MIN (>89); MAGNESIUM 1.9 MG/DL (1.5-2.5); POTASSIUM 4.3 MEQ/L (3.5-5.1); SODIUM (NA) 136 MEQ/L (136-145); TOTAL BILIRUBIN ADULT 1.9 MG/DL (0.2-1.0)
[2016-09-29 08:00] VITALS: BP 100/59; PULSE 79; RESP 17; TEMP 96.9; O2SAT 100
--- NOTE | 2016-09-29 08:37 | HHI.PR ---
Subjective Patient symptoms today Pt feeling well. Passing flatus. Pain controlled. Objective Vital Signs Vital Signs Date Time Temp Pulse Resp B/P Pulse Ox O2 Delivery O2 Flow Rate FiO2 09/29/16 06:00 16 09/29/16 04:45 98.7 83 17 96/58 97 09/29/16 02:02 18 09/29/16 00:56 98.9 92 17 106/59 97 09/28/16 21:40 18 09/28/16 20:00 98.8 100 16 107/57 100 09/28/16 16:00 97.7 92 17 108/55 93 09/28/16 14:00 18 09/28/16 12:00 99.1 94 16 102/57 93 Intake & Output 09/29/16 09/29/16 07:00 19:00 Intake Total 2290 ml Output Total 1600 ml Balance 690 ml IV Total 1662 ml TPN/PPN 628 ml Output Urine Total 1600 ml Result Diagram: 09/27/16 0420 09/29/16 0545 Objective Remarks Abd:soft,tender on exam, no rebound, incisional tenderness Ext: neg C/C/E Pelvic Drain: blood tinged Dressing intact 09/25 Abd:soft,tender on exam, no rebound, incisional tenderness Ext: neg C/C/E Pelvic Drain: blood tinged Dressing intact 09/26 Abd:soft,some tenderness, not distended Stoma:pink and viable Dressing and stoma intact Drains in place Ext: neg C/C/E 09/27 Abd:soft,some tenderness, not distended Stoma:pink and viable Dressing and stoma intact Drains in place Ext: neg C/C/E 09/28 Abd:soft,some tenderness, not distended Stoma:pink and viable Dressing and stoma intact Drains in place Ext: neg C/C/E 09/29 Abd:soft,some tenderness, not distended Stoma:pink and viable Dressing and stoma intact Drains in place Ext: neg C/C/E Medications and IVs Current Medications Medications (Trade) Dose Ordered Sig/Alfredo Route Start Time Stop Time Status Last Admin (Protonix Inj) 40 mg Q24H IV PUSH 09/23/16 16:00 09/28/16 16:00 (Tylenol Supp) 120 mg Q6H PRN RECTAL 09/23/16 15:45 Enoxaparin Sodium 30 mg 30 mg Q24H SQ 09/24/16 15:00 09/28/16 14:06 (Lr 1000 ml Inj) 1,000 ml @ 84 mls/hr [id number] IV 09/23/16 16:00 09/29/16 06:24 (Zofran Inj) 4 mg Q6HR PRN IV PUSH 09/23/16 15:45 (Reyataz) 300 mg DAILY PO 09/24/16 09:00 09/28/16 08:00 (Truvada 200-300 Mg) 1 tab DAILY PO 09/24/16 09:00 09/28/16 08:00 (Dilaudid CERAMIST Inj) 6 mg UNSCH IV 09/23/16 17:00 09/29/16 02:02 CERAMIST Dosage Infused (Pha) 1 Q8HR .XX 09/23/16 22:00 09/29/16 06:00 (Narcan Inj) 0.4 mg UNSCH PRN IV 09/23/16 17:00 Diphenhydramine HCl 25 mg 25 mg Q6H PRN IV PUSH 09/23/16 17:00 (Mvi-12 Inj/ Folvite Inj/ Clinimix E ) 1,010.2 ml @ 42 mls/hr Q24H IV-CENTRAL 09/23/16 20:00 09/28/16 21:40 (Norvir) 100 mg DAILY PO 09/24/16 09:00 09/28/16 08:00 (NovoLOG SUPPLEMENTAL SCALE) 1 Q6HR SQ 09/24/16 14:00 09/28/16 00:00 (D50w (Vial) Inj) 25 ml UNSCH PRN IV 09/24/16 13:45 Glucagon 1 mg 1 mg UNSCH PRN IM/SQ 09/24/16 13:45 (Venofer Inj/NS Inj) 105 ml @ 105 mls/hr DAILY IV 09/27/16 11:00 09/29/16 09:59 09/28/16 08:00 Assessment and Plan Assessment and Plan Stable s/p cystoprostatectomy and PLND OOB to chair today Encourage I/S Continue TPN Replace P04 09/25 Stable s/p cystoprostatectomy and PLND OOB to chair Encourage I/S Continue TPN Replace P04/K+ Transfer to floor 4/14 Stable s/p cystoprostatectomy and PLND POD#3 Replace K OOB to chair Path review with patient Hbg stable at 8.2. 415 Stable s/p cystoprostatectomy and PLND POD#4 D/C zacarias catheter OOB/Ambulate Labs stable 4/16 Stable s/p cystoprostatectomy and PLND POD#5 Passed gas; will d/c NGT OOB/Ambulate / Stable s/p cystoprostatectomy and PLND POD#6 Passed gas; NG tube out Start Clear liquid diet OOB/Ambulate López Vora DO Sep 29, 2016 08:37
[2016-09-29] MEDS: EMTRICITABINE/TENOFOVIR 200 MG/300 MG TAB PO SCH (08:38)
[2016-09-29] MEDS: ATAZANAVIR 150 MG CAP PO SCH (08:38)
[2016-09-29] MEDS: RITONAVIR 100 MG TAB PO SCH (08:38)
[2016-09-29] MEDS: IRON SUCROSE INJ 100 MG in SODIUM CHLORIDE 0.9% INJ 100 ML IV SCH (08:39)
[2016-09-29] MEDS ORDERED: HYDROmorphone HCL PF 1 MG/ML VIAL IV PUSH PRN (08:45)
[2016-09-29] MEDS ORDERED: ACETAMINOPHEN/HYDROcodone 325 MG/7.5 MG TAB PO PRN (08:45)
--- NOTE | 2016-09-29 10:26 | HHI.PR ---
Subjective Remarks facility practice specialist Notes: 61-year-old man with past medical history of HIV diagnosed 20 years ago on HAART , COPD, tobacco abuse who was diagnosed with muscle invasive bladder cancer in April of 2016. He was treated with neoadjuvant chemotherapy under the care of Dr. Mckeon. He states he completed chemotherapy 2 months ago. He underwent radical cystoprostatectomy and pelvic lymph node dissection with creation of ileo conduit by Dr. Jose Vora on 09/23/16 and critical care medicine was consulted to assist with medical management postoperatively. Hospitalist notes: 09/25: Seen in his bedroom in Intensive Care unit, recommended to replace Phosphorus that was done in am with Potassium Phosphate and also to replace magnesium with 2 grams of Magnesium Sulfate, will follow electrolytes in am. 09/26: Potassium replaced. 09/27: Potassium chloride replaced and today will replace Magnesium, Ileal conduit working fine ambulating well. 09/28: Seen in his bedroom, discussed with him and his Brother, continue with NG tube at slow suction. 09/29: Stable no complaint, NG tube removed by attending physician. NO nausea, vomit or diarrhea. Objective Vital Signs Date Time Temp Pulse Resp B/P Pulse Ox O2 Delivery O2 Flow Rate FiO2 09/29/16 08:00 96.9 79 17 100/59 100 09/29/16 06:00 16 09/29/16 04:45 98.7 83 17 96/58 97 09/29/16 02:02 18 09/29/16 00:56 98.9 92 17 106/59 97 09/28/16 21:40 18 09/28/16 20:00 98.8 100 16 107/57 100 09/28/16 16:00 97.7 92 17 108/55 93 09/28/16 14:00 18 09/28/16 12:00 99.1 94 16 102/57 93 I/O 09/28/16 09/28/16 09/28/16 09/29/16 09/29/16 09/29/16 07:00 15:00 23:00 07:00 15:00 23:00 Intake Total 1109 ml 937 ml 1229 ml 1061 ml Output Total 1200 ml 1550 ml 1000 ml 600 ml Balance -91 ml -613 ml 229 ml 461 ml Intake Oral 0 ml IV Total 767 ml 627 ml 915 ml 747 ml TPN/PPN 342 ml 310 ml 314 ml 314 ml Output Urine Total 1200 ml 1550 ml 1000 ml 600 ml # Bowel Movements 0 Result Diagram: 09/27/16 0420 09/29/16 0545 Imaging Last Impressions Chest X-Ray 09/23/16 0000 Signed Impressions: Service Date/Time: Friday, September 23, 2016 15:56 - CONCLUSION: 1. NG tube placement as above and central line placement as above without pneumothorax. 2. Free intraperitoneal air is noted. Kunal Rucker MD Abdomen X-Ray 09/23/16 0000 Signed Impressions: Service Date/Time: Friday, September 23, 2016 16:01 - CONCLUSION: Postsurgical changes are noted as above. Kunal Rucker MD Procedures s/p radical cystoprostatectomy, pelvic lymph node resection, ileal conduit, bilateral ureteral stents 09/23/16 (Dr. López Vora) Other Results Laboratory Tests Test 09/23/16 09/25/16 09/27/16 09/29/16 13:50 05:40 04:20 05:45 Blood Type A POSITIVE Crossmatch Leukocyte-Reduced Red Blood Cells Blood Bank Comment Neutrophils (%) (Auto) 68.1 % Lymphocytes (%) (Auto) 19.3 % Monocytes (%) (Auto) 9.3 % Eosinophils (%) (Auto) 2.9 % Basophils (%) (Auto) 0.4 % Neutrophils # (Auto) 5.5 TH/MM3 Lymphocytes # (Auto) 1.6 TH/MM3 Monocytes # (Auto) 0.8 TH/MM3 Eosinophils # (Auto) 0.2 TH/MM3 Basophils # (Auto) 0.0 TH/MM3 CBC Comment DIFF FINAL Differential Comment White Blood Count 7.0 TH/MM3 Red Blood Count 2.71 MIL/MM3 Hemoglobin 8.1 GM/DL Hematocrit 23.5 % Mean Corpuscular Volume 86.7 FL Mean Corpuscular Hemoglobin 29.9 PG Mean Corpuscular Hemoglobin 34.5 % Concent Red Cell Distribution Width 13.8 % Platelet Count 193 TH/MM3 Mean Platelet Volume 7.7 FL Sodium Level 136 MEQ/L Potassium Level 4.3 MEQ/L Chloride Level 103 MEQ/L Carbon Dioxide Level 28.1 MEQ/L Anion Gap 5 MEQ/L Blood Urea Nitrogen 13 MG/DL Creatinine 0.79 MG/DL Estimat Glomerular Filtration 99 ML/MIN Rate Random Glucose 93 MG/DL Calcium Level 8.9 MG/DL Phosphorus Level 3.5 MG/DL Magnesium Level 1.9 MG/DL Total Bilirubin 1.9 MG/DL Aspartate Amino Transf 26 U/L (AST/SGOT) Alanine Aminotransferase 38 U/L (ALT/SGPT) Alkaline Phosphatase 193 U/L Total Protein 6.1 GM/DL Albumin 2.4 GM/DL Objective Remarks GENERAL: Well-nourished, No acute distress. SKIN: Warm and dry, well perfused. HEAD: Atraumatic. Normocephalic. EYES: Pupils equal and round, 3 mm and reactive bilaterally. No scleral icterus. No injection or drainage. ENT: No nasal bleeding or discharge. Mucous membranes pink and moist. NECK: Trachea midline. No JVD. CARDIOVASCULAR: Distant heart sounds. Regular rate and rhythm. RESPIRATORY: Clear to auscultation bilateral, no wheezing or crackles. GASTROINTESTINAL: Abdomen soft, mildly tender with absent bowel sounds, dressing in place lower abdomen c/d/i. Ileostomy stoma is pink. MUSCULOSKELETAL: Extremities without clubbing, cyanosis, or edema. NEUROLOGICAL: Awake and alert, oriented and conversing appropriately. No obvious cranial nerve deficits. Motor grossly within normal limits. Normal speech. Medications and IVs Current Medications Medications (Trade) Dose Ordered Sig/Alfredo Route Start Time Stop Time Status Last Admin (Protonix Inj) 40 mg Q24H IV PUSH 09/23/16 16:00 09/28/16 16:00 (Tylenol Supp) 120 mg Q6H PRN RECTAL 09/23/16 15:45 Enoxaparin Sodium 30 mg 30 mg Q24H SQ 09/24/16 15:00 09/28/16 14:06 (Lr 1000 ml Inj) 1,000 ml @ 84 mls/hr [id number] IV 09/23/16 16:00 09/29/16 06:24 (Zofran Inj) 4 mg Q6HR PRN IV PUSH 09/23/16 15:45 (Reyataz) 300 mg DAILY PO 09/24/16 09:00 09/29/16 08:38 (Truvada 200-300 Mg) 1 tab DAILY PO 09/24/16 09:00 09/29/16 08:38 Diphenhydramine HCl 25 mg 25 mg Q6H PRN IV PUSH 09/23/16 17:00 (Mvi-12 Inj/ Folvite Inj/ Clinimix E .) 1,010.2 ml @ 42 mls/hr Q24H IV-CENTRAL 09/23/16 20:00 09/28/16 21:40 (Norvir) 100 mg DAILY PO 09/24/16 09:00 09/29/16 08:38 (NovoLOG SUPPLEMENTAL SCALE) 1 Q6HR SQ 09/24/16 14:00 09/28/16 00:00 (D50w (Vial) Inj) 25 ml UNSCH PRN IV 09/24/16 13:45 (Glucagon Inj) 1 mg UNSCH PRN IM/SQ 09/24/16 13:45 (Dilaudid Pf Inj) 0.2 mg Q4H PRN IV PUSH 09/29/16 08:45 ([place] 7.5-325 Mg) 1 tab Q6H PRN PO 09/29/16 08:45 A/P Assessment and Plan 1. COPD/Tobacco dependence, Bronchodilator, Mucolytic and incentive spirometry early ambulation 2. Moderate Protein energy malnutrition/Hyperbilirubinemia NPO, TPN continue. 3. Invasive Urinary Bladder Cancer s/p radical cystoprostatectomy, pelvic lymph node resection, ileal conduit, bilateral ureteral stents 09/23/16 (Dr. López Vora) 4. HIV Resume HAART meds when able to take po. Monitor for signs/symptoms of infection. Perioperative antibiotics given. 5. Acute Blood loss anemia hemoglobin post op 10 follow Hemoglobin received 3 units of PRBCs in OR 09/23 following. Hemoglobin today 8.1 complete Iron IV for three days. 6. Electrolyte Derangement replaced and following. DVT prophylaxis. Lovenox Discussed with Patient Discharge Planning As per Attending physician. Jose Andre MD Sep 29, 2016 10:26
[2016-09-29 12:00] VITALS: BP 100/60; PULSE 86; RESP 19; TEMP 98.5; O2SAT 100
[2016-09-29] MEDS: ENOXAPARIN SODIUM 30 MG/0.3 ML SYRINGE SQ SCH (15:24)
[2016-09-29] MEDS: PANTOPRAZOLE SODIUM 40 MG VIAL IV PUSH SCH (15:24)
[2016-09-29 16:00] VITALS: BP 100/57; PULSE 83; RESP 19; TEMP 98; O2SAT 100
[2016-09-29 20:00] VITALS: BP 103/57; PULSE 89; RESP 21; TEMP 98.7; O2SAT 97
[2016-09-29] MEDS: CLINIMIX E 4.25/25 1000 mL- </= 42 mls/hr IV-CENTRAL SCH ×3 (20:28)
[2016-09-30] VITALS: BP 97/54; PULSE 82; RESP 16; TEMP 98.1; O2SAT 97
[2016-09-30] MEDS: INSULIN ASPART SUPPLEMENTAL SCALE SQ SCH ×4 (00:55→17:39)
[2016-09-30] MEDS: LACTATED RINGER'S 1000 ML INJ 1,000 ML IV SCH ×2 (05:01→14:50)
[2016-09-30 05:47] LABS: ALT (GPT) 42 U/L (12-78); ANION GAP 8 MEQ/L (5-15); AST (GOT) 29 U/L (15-37); BICARBONATE 26.2 MEQ/L (21.0-32.0); BLOOD UREA NITROGEN 12 MG/DL (7-18); CHLORIDE 105 MEQ/L (98-107); GLOMERULAR FILTRATION RATE 91 ML/MIN (>89); MAGNESIUM 1.9 MG/DL (1.5-2.5); POTASSIUM 4.1 MEQ/L (3.5-5.1); SODIUM (NA) 139 MEQ/L (136-145)
[2016-09-30 05:49] LABS: ALKALINE PHOSPHATASE 230 U/L (45-117); TOTAL BILIRUBIN ADULT 1.8 MG/DL (0.2-1.0)
[2016-09-30 08:00] VITALS: BP 101/54; PULSE 77; RESP 18; TEMP 97.8; O2SAT 97
[2016-09-30] MEDS: EMTRICITABINE/TENOFOVIR 200 MG/300 MG TAB PO SCH (09:16)
[2016-09-30] MEDS: RITONAVIR 100 MG TAB PO SCH (09:16)
[2016-09-30] MEDS: ATAZANAVIR 150 MG CAP PO SCH (09:16)
--- NOTE | 2016-09-30 09:22 | HHI.PR ---
Subjective Patient symptoms today Pt seen and examined. Feels well. Some diarrhea. No pain. Tolerated clear liquids. Objective Vital Signs Vital Signs Date Time Temp Pulse Resp B/P Pulse Ox O2 Delivery O2 Flow Rate FiO2 09/30/16 00:00 98.1 82 16 97/54 97 09/29/16 20:00 98.7 89 21 103/57 97 09/29/16 16:00 98.0 83 19 100/57 100 09/29/16 12:00 98.5 86 19 100/60 100 Intake & Output 09/30/16 09/30/16 07:00 19:00 Intake Total 2226 ml Output Total 1100 ml Balance 1126 ml Intake Oral 480 ml IV Total 1149 ml TPN/PPN 597 ml Output Urine Total 1100 ml # Bowel Movements 2 Result Diagram: 09/27/16 0420 09/30/16 0510 Objective Remarks Abd:soft,tender on exam, no rebound, incisional tenderness Ext: neg C/C/E Pelvic Drain: blood tinged Dressing intact 09/25 Abd:soft,tender on exam, no rebound, incisional tenderness Ext: neg C/C/E Pelvic Drain: blood tinged Dressing intact 09/26 Abd:soft,some tenderness, not distended Stoma:pink and viable Dressing and stoma intact Drains in place Ext: neg C/C/E 09/27 Abd:soft,some tenderness, not distended Stoma:pink and viable Dressing and stoma intact Drains in place Ext: neg C/C/E 09/28 Abd:soft,some tenderness, not distended Stoma:pink and viable Dressing and stoma intact Drains in place Ext: neg C/C/E 09/29 Abd:soft,some tenderness, not distended Stoma:pink and viable Dressing and stoma intact Drains in place Ext: neg C/C/E 09/30 Abd:soft, nt, non-distended Stoma:pink and viable Dressing and stoma intact Ext: neg C/C/E Medications and IVs Current Medications Medications (Trade) Dose Ordered Sig/Alfredo Route Start Time Stop Time Status Last Admin (Protonix Inj) 40 mg Q24H IV PUSH 09/23/16 16:00 09/29/16 15:24 (Tylenol Supp) 120 mg Q6H PRN RECTAL 09/23/16 15:45 Enoxaparin Sodium 30 mg 30 mg Q24H SQ 09/24/16 15:00 09/29/16 15:24 (Lr 1000 ml Inj) 1,000 ml @ 84 mls/hr [id number] IV 09/23/16 16:00 09/30/16 05:01 (Zofran Inj) 4 mg Q6HR PRN IV PUSH 09/23/16 15:45 (Reyataz) 300 mg DAILY PO 09/24/16 09:00 09/30/16 09:16 ([place] 200-300 Mg) 1 tab DAILY PO 09/24/16 09:00 09/30/16 09:16 Diphenhydramine HCl 25 mg 25 mg Q6H PRN IV PUSH 09/23/16 17:00 (Mvi-12 Inj/ Folvite Inj/ Clinimix E ) 1,010.2 ml @ 42 mls/hr Q24H IV-CENTRAL 09/23/16 20:00 09/29/16 20:28 (Norvir) 100 mg DAILY PO 09/24/16 09:00 09/30/16 09:16 (NovoLOG SUPPLEMENTAL SCALE) 1 Q6HR SQ 09/24/16 14:00 09/30/16 00:55 (D50w (Vial) Inj) 25 ml UNSCH PRN IV 09/24/16 13:45 (Glucagon Inj) 1 mg UNSCH PRN IM/SQ 09/24/16 13:45 (Dilaudid Pf Inj) 0.2 mg Q4H PRN IV PUSH 09/29/16 08:45 ([place] 7.5-325 Mg) 1 tab Q6H PRN PO 09/29/16 08:45 Assessment and Plan Assessment and Plan Stable s/p cystoprostatectomy and PLND OOB to chair today Encourage I/S Continue TPN Replace P04 09/25 Stable s/p cystoprostatectomy and PLND OOB to chair Encourage I/S Continue TPN Replace P04/K+ Transfer to floor 09/26 Stable s/p cystoprostatectomy and PLND POD#3 Replace K OOB to chair Path review with patient Hbg stable at 8.2. 09/27 Stable s/p cystoprostatectomy and PLND POD#4 D/C zacarias catheter OOB/Ambulate Labs stable 4/16 Stable s/p cystoprostatectomy and PLND POD#5 Passed gas; will d/c NGT OOB/Ambulate 4/17 Stable s/p cystoprostatectomy and PLND POD#6 Passed gas; NG tube out Start Clear liquid diet OOB/Ambulate 09/30 Stable s/p cystoprostatectomy and PLND POD#7 Advance to full liquid diet OOB/Ambulate D/C TPN López Vora DO Sep 30, 2016 09:22
--- NOTE | 2016-09-30 10:23 | HHI.PR ---
Subjective Remarks refund specialist Notes: 61-year-old man with past medical history of HIV diagnosed 20 years ago on HAART , COPD, tobacco abuse who was diagnosed with muscle invasive bladder cancer in April of 2016. He was treated with neoadjuvant chemotherapy under the care of Dr. Mckeon. He states he completed chemotherapy 2 months ago. He underwent radical cystoprostatectomy and pelvic lymph node dissection with creation of ileo conduit by Dr. Jose Vora on 09/23/16 and critical care medicine was consulted to assist with medical management postoperatively. Hospitalist notes: 09/25: Seen in his bedroom in Intensive Care unit, recommended to replace Phosphorus that was done in am with Potassium Phosphate and also to replace magnesium with 2 grams of Magnesium Sulfate, will follow electrolytes in am. 09/26: Potassium replaced. 09/27: Potassium chloride replaced and today will replace Magnesium, Ileal conduit working fine ambulating well. 09/28: Seen in his bedroom, discussed with him and his Brother, continue with NG tube at slow suction. 09/29: Stable no complaint, NG tube removed by attending physician. 09/30: No complaint, No Nausea, vomit or diarrhea, continue present care, discussed with patient and nurse Miss Morley Objective Vital Signs Date Time Temp Pulse Resp B/P Pulse Ox O2 Delivery O2 Flow Rate FiO2 09/30/16 08:00 97.8 77 18 101/54 97 09/30/16 00:00 98.1 82 16 97/54 97 09/29/16 20:00 98.7 89 21 103/57 97 09/29/16 16:00 98.0 83 19 100/57 100 09/29/16 12:00 98.5 86 19 100/60 100 I/O 09/29/16 09/29/16 09/29/16 09/30/16 09/30/16 09/30/16 07:00 15:00 23:00 07:00 15:00 23:00 Intake Total 1061 ml 1351 ml 1106 ml 1120 ml Output Total 600 ml 675 ml 500 ml 600 ml Balance 461 ml 676 ml 606 ml 520 ml Intake Oral 240 ml 240 ml 240 ml IV Total 747 ml 779 ml 565 ml 584 ml TPN/PPN 314 ml 332 ml 301 ml 296 ml Output Urine Total 600 ml 675 ml 500 ml 600 ml # Bowel Movements 3 0 Result Diagram: 09/27/16 0420 09/30/16 0510 Imaging Last Impressions Chest X-Ray 09/23/16 0000 Signed Impressions: Service Date/Time: Friday, September 23, 2016 15:56 - CONCLUSION: 1. NG tube placement as above and central line placement as above without pneumothorax. 2. Free intraperitoneal air is noted. Kunal Rucker MD Abdomen X-Ray 09/23/16 0000 Signed Impressions: Service Date/Time: Friday, September 23, 2016 16:01 - CONCLUSION: Postsurgical changes are noted as above. Kunal Rucker MD Procedures s/p radical cystoprostatectomy, pelvic lymph node resection, ileal conduit, bilateral ureteral stents 09/23/16 (Dr. López Vora) Other Results Laboratory Tests Test 09/23/16 09/27/16 09/30/16 13:50 04:20 05:10 Blood Type A POSITIVE Crossmatch Leukocyte-Reduced Red Blood Cells Blood Bank Comment White Blood Count 7.0 TH/MM3 Red Blood Count 2.71 MIL/MM3 Hemoglobin 8.1 GM/DL Hematocrit 23.5 % Mean Corpuscular Volume 86.7 FL Mean Corpuscular Hemoglobin 29.9 PG Mean Corpuscular Hemoglobin 34.5 % Concent Red Cell Distribution Width 13.8 % Platelet Count 193 TH/MM3 Mean Platelet Volume 7.7 FL Sodium Level 139 MEQ/L Potassium Level 4.1 MEQ/L Chloride Level 105 MEQ/L Carbon Dioxide Level 26.2 MEQ/L Anion Gap 8 MEQ/L Blood Urea Nitrogen 12 MG/DL Creatinine 0.85 MG/DL Estimat Glomerular Filtration 91 ML/MIN Rate Random Glucose 143 MG/DL Calcium Level 8.8 MG/DL Phosphorus Level 3.1 MG/DL Magnesium Level 1.9 MG/DL Total Bilirubin 1.8 MG/DL Aspartate Amino Transf 29 U/L (AST/SGOT) Alanine Aminotransferase 42 U/L (ALT/SGPT) Alkaline Phosphatase 230 U/L Total Protein 6.2 GM/DL Albumin 2.4 GM/DL Objective Remarks GENERAL: Well-nourished, No acute distress. SKIN: Warm and dry, well perfused. HEAD: Atraumatic. Normocephalic. EYES: Pupils equal and round, 3 mm and reactive bilaterally. No scleral icterus. No injection or drainage. ENT: No nasal bleeding or discharge. Mucous membranes pink and moist. NECK: Trachea midline. No JVD. CARDIOVASCULAR: Distant heart sounds. Regular rate and rhythm. RESPIRATORY: Clear to auscultation bilateral, no wheezing or crackles. GASTROINTESTINAL: Abdomen soft, mildly tender with absent bowel sounds, dressing in place lower abdomen c/d/i. Ileostomy stoma is pink. MUSCULOSKELETAL: Extremities without clubbing, cyanosis, or edema. NEUROLOGICAL: Awake and alert, oriented and conversing appropriately. No obvious cranial nerve deficits. Motor grossly within normal limits. Normal speech. Medications and IVs Current Medications Medications (Trade) Dose Ordered Sig/Alfredo Route Start Time Stop Time Status Last Admin (Protonix Inj) 40 mg Q24H IV PUSH 09/23/16 16:00 09/29/16 15:24 (Tylenol Supp) 120 mg Q6H PRN RECTAL 09/23/16 15:45 Enoxaparin Sodium 30 mg 30 mg Q24H SQ 09/24/16 15:00 09/29/16 15:24 (Lr 1000 ml Inj) 1,000 ml @ 84 mls/hr [id number] IV 09/23/16 16:00 09/30/16 05:01 (Zofran Inj) 4 mg Q6HR PRN IV PUSH 09/23/16 15:45 (Reyataz) 300 mg DAILY PO 09/24/16 09:00 09/30/16 09:16 ([place] 200-300 Mg) 1 tab DAILY PO 09/24/16 09:00 09/30/16 09:16 (Benadryl Inj) 25 mg Q6H PRN IV PUSH 09/23/16 17:00 (Norvir) 100 mg DAILY PO 09/24/16 09:00 09/30/16 09:16 (NovoLOG SUPPLEMENTAL SCALE) 1 Q6HR SQ 09/24/16 14:00 09/30/16 00:55 (D50w (Vial) Inj) 25 ml UNSCH PRN IV 09/24/16 13:45 (Glucagon Inj) 1 mg UNSCH PRN IM/SQ 09/24/16 13:45 (Dilaudid Pf Inj) 0.2 mg Q4H PRN IV PUSH 09/29/16 08:45 ([place] 7.5-325 Mg) 1 tab Q6H PRN PO 09/29/16 08:45 A/P Assessment and Plan 1. COPD/Tobacco dependence, Bronchodilator, Mucolytic and incentive spirometry early ambulation 2. Moderate Protein energy malnutrition/Hyperbilirubinemia NPO, TPN continue. 3. Invasive Urinary Bladder Cancer s/p radical cystoprostatectomy, pelvic lymph node resection, ileal conduit, bilateral ureteral stents 09/23/16 (Dr. López Vora) 4. HIV Resume HAART meds when able to take po. Monitor for signs/symptoms of infection. Perioperative antibiotics given. 5. Acute Blood loss anemia, Received 3 units of PRBCs in OR 09/23 following. Hemoglobin today 8.1 complete Iron IV for three days. 6. Electrolyte Derangement replaced DVT prophylaxis. Lovenox Discussed with Patient and nurse Milli Discharge Planning As per Attending physician. Jose Andre MD Sep 30, 2016 10:23
[2016-09-30 12:00] VITALS: BP 100/59; PULSE 76; RESP 18; TEMP 97.7; O2SAT 97
[2016-09-30] MEDS: ENOXAPARIN SODIUM 30 MG/0.3 ML SYRINGE SQ SCH (15:12)
[2016-09-30 16:00] VITALS: BP 107/60; PULSE 82; RESP 16; TEMP 97.7; O2SAT 96
[2016-09-30] MEDS: PANTOPRAZOLE SODIUM 40 MG VIAL IV PUSH SCH (17:39)
[2016-09-30 20:00] VITALS: BP 112/60; PULSE 79; RESP 16; TEMP 97.8; O2SAT 96
[2016-10-01] VITALS: BP 92/55; PULSE 82; RESP 16; TEMP 98.3; O2SAT 93
[2016-10-01] MEDS: LACTATED RINGER'S 1000 ML INJ 1,000 ML IV SCH ×2 (02:45→13:57)
[2016-10-01] MEDS: INSULIN ASPART SUPPLEMENTAL SCALE SQ SCH ×4 (06:00→15:28)
[2016-10-01 08:00] VITALS: BP 90/61; PULSE 77; RESP 16; TEMP 98.2; O2SAT 97
--- NOTE | 2016-10-01 08:46 | HHI.PR ---
Subjective Remarks emergency management specialist Notes: 61-year-old man with past medical history of HIV diagnosed 20 years ago on HAART , COPD, tobacco abuse who was diagnosed with muscle invasive bladder cancer in April of 2016. He was treated with neoadjuvant chemotherapy under the care of Dr. Mckeon. He states he completed chemotherapy 2 months ago. He underwent radical cystoprostatectomy and pelvic lymph node dissection with creation of ileo conduit by Dr. Jose Vora on 09/23/16 and critical care medicine was consulted to assist with medical management postoperatively. Hospitalist notes: 09/25: Seen in his bedroom in Intensive Care unit, recommended to replace Phosphorus that was done in am with Potassium Phosphate and also to replace magnesium with 2 grams of Magnesium Sulfate, will follow electrolytes in am. 09/26: Potassium replaced. 09/27: Potassium chloride replaced and today will replace Magnesium, Ileal conduit working fine ambulating well. 09/28: Seen in his bedroom, discussed with him and his Brother, continue with NG tube at slow suction. 09/29: Stable no complaint, NG tube removed by attending physician. 09/30: No complaint. 10/01: The patient states he will be discharged tomorrow, no Nausea, vomit or diarrhea, also Medically clear for discharge. Objective Vital Signs Date Time Temp Pulse Resp B/P Pulse Ox O2 Delivery O2 Flow Rate FiO2 10/01/16 08:00 98.2 77 16 90/61 97 10/01/16 00:00 98.3 82 16 92/55 93 09/30/16 20:00 97.8 79 16 112/60 96 09/30/16 16:00 97.7 82 16 107/60 96 09/30/16 12:00 97.7 76 18 100/59 97 I/O 09/30/16 09/30/16 09/30/16 10/01/16 10/01/16 10/01/16 07:00 15:00 23:00 07:00 15:00 23:00 Intake Total 1120 ml 1117 ml 1279 ml 575 ml Output Total 600 ml 300 ml 300 ml 1000 ml Balance 520 ml 817 ml 979 ml -425 ml Intake Oral 240 ml 350 ml IV Total 584 ml 744 ml 686 ml 575 ml TPN/PPN 296 ml 373 ml 243 ml Output Urine Total 600 ml 300 ml 1000 ml Stool Total 300 ml # Voids 4 # Bowel Movements 0 2 0 0 Result Diagram: 10/01/16 0302 09/30/16 0510 Imaging Last Impressions Chest X-Ray 09/23/16 0000 Signed Impressions: Service Date/Time: Friday, September 23, 2016 15:56 - CONCLUSION: 1. NG tube placement as above and central line placement as above without pneumothorax. 2. Free intraperitoneal air is noted. Kunal Rucker MD Abdomen X-Ray 09/23/16 0000 Signed Impressions: Service Date/Time: Friday, September 23, 2016 16:01 - CONCLUSION: Postsurgical changes are noted as above. Kunal Rucker MD Procedures s/p radical cystoprostatectomy, pelvic lymph node resection, ileal conduit, bilateral ureteral stents 09/23/16 (Dr. López Vora) Other Results Laboratory Tests Test 09/27/16 09/30/16 10/01/16 04:20 05:10 03:02 White Blood Count 7.0 TH/MM3 Red Blood Count 2.71 MIL/MM3 Mean Corpuscular Volume 86.7 FL Mean Corpuscular Hemoglobin 29.9 PG Mean Corpuscular Hemoglobin 34.5 % Concent Red Cell Distribution Width 13.8 % Platelet Count 193 TH/MM3 Mean Platelet Volume 7.7 FL Sodium Level 139 MEQ/L Potassium Level 4.1 MEQ/L Chloride Level 105 MEQ/L Carbon Dioxide Level 26.2 MEQ/L Anion Gap 8 MEQ/L Blood Urea Nitrogen 12 MG/DL Creatinine 0.85 MG/DL Estimat Glomerular Filtration 91 ML/MIN Rate Random Glucose 143 MG/DL Calcium Level 8.8 MG/DL Phosphorus Level 3.1 MG/DL Magnesium Level 1.9 MG/DL Total Bilirubin 1.8 MG/DL Aspartate Amino Transf 29 U/L (AST/SGOT) Alanine Aminotransferase 42 U/L (ALT/SGPT) Alkaline Phosphatase 230 U/L Total Protein 6.2 GM/DL Albumin 2.4 GM/DL Hemoglobin 8.4 GM/DL Hematocrit 25.0 % Objective Remarks GENERAL: Well-nourished, No acute distress. SKIN: Warm and dry, well perfused. HEAD: Atraumatic. Normocephalic. EYES: Pupils equal and round, 3 mm and reactive bilaterally. No scleral icterus. No injection or drainage. ENT: No nasal bleeding or discharge. Mucous membranes pink and moist. NECK: Trachea midline. No JVD. CARDIOVASCULAR: Distant heart sounds. Regular rate and rhythm. RESPIRATORY: Clear to auscultation bilateral, no wheezing or crackles. GASTROINTESTINAL: Abdomen soft, mildly tender with absent bowel sounds, dressing in place lower abdomen c/d/i. Ileostomy stoma is pink. MUSCULOSKELETAL: Extremities without clubbing, cyanosis, or edema. NEUROLOGICAL: Awake and alert, oriented and conversing appropriately. Medications and IVs Current Medications Medications (Trade) Dose Ordered Sig/Alfredo Route Start Time Stop Time Status Last Admin (Protonix Inj) 40 mg Q24H IV PUSH 09/23/16 16:00 09/30/16 17:39 (Tylenol Supp) 120 mg Q6H PRN RECTAL 09/23/16 15:45 Enoxaparin Sodium 30 mg 30 mg Q24H SQ 09/24/16 15:00 09/30/16 15:12 (Lr 1000 ml Inj) 1,000 ml @ 84 mls/hr [id number] IV 09/23/16 16:00 10/01/16 02:45 (Zofran Inj) 4 mg Q6HR PRN IV PUSH 09/23/16 15:45 (Reyataz) 300 mg DAILY PO 09/24/16 09:00 09/30/16 09:16 ([place] 200-300 Mg) 1 tab DAILY PO 09/24/16 09:00 09/30/16 09:16 (Benadryl Inj) 25 mg Q6H PRN IV PUSH 09/23/16 17:00 (Norvir) 100 mg DAILY PO 09/24/16 09:00 09/30/16 09:16 (NovoLOG SUPPLEMENTAL SCALE) 1 Q6HR SQ 09/24/16 14:00 09/30/16 17:39 (D50w (Vial) Inj) 25 ml UNSCH PRN IV 09/24/16 13:45 (Glucagon Inj) 1 mg UNSCH PRN IM/SQ 09/24/16 13:45 (Dilaudid Pf Inj) 0.2 mg Q4H PRN IV PUSH 09/29/16 08:45 ([place] 7.5-325 Mg) 1 tab Q6H PRN PO 09/29/16 08:45 A/P Assessment and Plan 1. COPD/Tobacco dependence, Bronchodilator, Mucolytic and incentive spirometry early ambulation 2. Moderate Protein energy malnutrition/Hyperbilirubinemia NPO, TPN continue. 3. Invasive Urinary Bladder Cancer s/p radical cystoprostatectomy, pelvic lymph node resection, ileal conduit, bilateral ureteral stents 09/23/16 (Dr. López Vora) 4. HIV Resume HAART meds when able to take po. Monitor for signs/symptoms of infection. Perioperative antibiotics given. 5. Acute Blood loss anemia, Received 3 units of PRBCs in OR 09/23 following. Hemoglobin today 8.4 complete Iron IV for three days. 6. Electrolyte Derangement replaced DVT prophylaxis. Lovenox Discussed with Patient and nurse Discharge Planning As per Attending physician. Jose Andre MD Oct 01, 2016 08:46 Jose Andre MD Oct 01, 2016 08:46
[2016-10-01] MEDS: ATAZANAVIR 150 MG CAP PO SCH (09:11)
[2016-10-01] MEDS: RITONAVIR 100 MG TAB PO SCH (09:12)
[2016-10-01] MEDS: EMTRICITABINE/TENOFOVIR 200 MG/300 MG TAB PO SCH (09:12)
--- NOTE | 2016-10-01 09:26 | HHI.PR ---
Subjective Patient symptoms today Pt feel well. No pain. Desires to eat regular food. Objective Vital Signs Vital Signs Date Time Temp Pulse Resp B/P Pulse Ox O2 Delivery O2 Flow Rate FiO2 10/01/16 08:00 98.2 77 16 90/61 97 10/01/16 00:00 98.3 82 16 92/55 93 09/30/16 20:00 97.8 79 16 112/60 96 09/30/16 16:00 97.7 82 16 107/60 96 09/30/16 12:00 97.7 76 18 100/59 97 Intake & Output 10/01/16 10/01/16 07:00 19:00 Intake Total 1854 ml Output Total 1300 ml Balance 554 ml Intake Oral 350 ml IV Total 1261 ml TPN/PPN 243 ml Output Urine Total 1300 ml # Bowel Movements 0 Result Diagram: 10/01/16 0302 09/30/16 0510 Objective Remarks Abd:soft,tender on exam, no rebound, incisional tenderness Ext: neg C/C/E Pelvic Drain: blood tinged Dressing intact 09/25 Abd:soft,tender on exam, no rebound, incisional tenderness Ext: neg C/C/E Pelvic Drain: blood tinged Dressing intact 09/26 Abd:soft,some tenderness, not distended Stoma:pink and viable Dressing and stoma intact Drains in place Ext: neg C/C/E 09/27 Abd:soft,some tenderness, not distended Stoma:pink and viable Dressing and stoma intact Drains in place Ext: neg C/C/E 09/28 Abd:soft,some tenderness, not distended Stoma:pink and viable Dressing and stoma intact Drains in place Ext: neg C/C/E 09/29 Abd:soft,some tenderness, not distended Stoma:pink and viable Dressing and stoma intact Drains in place Ext: neg C/C/E 09/30 Abd:soft, nt, non-distended Stoma:pink and viable Dressing and stoma intact Ext: neg C/C/E 10/01 Abd:soft, nt, non-distended Stoma:pink and viable Dressing and stoma intact Ext: neg C/C/E Medications and IVs Current Medications Medications (Trade) Dose Ordered Sig/Alfredo Route Start Time Stop Time Status Last Admin (Protonix Inj) 40 mg Q24H IV PUSH 09/23/16 16:00 09/30/16 17:39 (Tylenol Supp) 120 mg Q6H PRN RECTAL 09/23/16 15:45 Enoxaparin Sodium 30 mg 30 mg Q24H SQ 09/24/16 15:00 09/30/16 15:12 (Lr 1000 ml Inj) 1,000 ml @ 84 mls/hr [id number] IV 09/23/16 16:00 10/01/16 02:45 (Zofran Inj) 4 mg Q6HR PRN IV PUSH 09/23/16 15:45 (Reyataz) 300 mg DAILY PO 09/24/16 09:00 10/01/16 09:11 (Truvada 200-300 Mg) 1 tab DAILY PO 09/24/16 09:00 10/01/16 09:12 (Benadryl Inj) 25 mg Q6H PRN IV PUSH 09/23/16 17:00 (Norvir) 100 mg DAILY PO 09/24/16 09:00 10/01/16 09:12 (NovoLOG SUPPLEMENTAL SCALE) 1 Q6HR SQ 09/24/16 14:00 09/30/16 17:39 (D50w (Vial) Inj) 25 ml UNSCH PRN IV 09/24/16 13:45 (Glucagon Inj) 1 mg UNSCH PRN IM/SQ 09/24/16 13:45 (Dilaudid Pf Inj) 0.2 mg Q4H PRN IV PUSH 09/29/16 08:45 ([place] 7.5-325 Mg) 1 tab Q6H PRN PO 09/29/16 08:45 Assessment and Plan Assessment and Plan Stable s/p cystoprostatectomy and PLND OOB to chair today Encourage I/S Continue TPN Replace P04 4/ Stable s/p cystoprostatectomy and PLND OOB to chair Encourage I/S Continue TPN Replace P04/K+ Transfer to floor 4/ Stable s/p cystoprostatectomy and PLND POD#3 Replace K OOB to chair Path review with patient Hbg stable at 8.2. 09/27 Stable s/p cystoprostatectomy and PLND POD#4 D/C zacarias catheter OOB/Ambulate Labs stable 4 Stable s/p cystoprostatectomy and PLND POD#5 Passed gas; will d/c NGT OOB/Ambulate 4/17 Stable s/p cystoprostatectomy and PLND POD#6 Passed gas; NG tube out Start Clear liquid diet OOB/Ambulate 4/ Stable s/p cystoprostatectomy and PLND POD#7 Advance to full liquid diet OOB/Ambulate D/C TPN 10/01 Stable s/p cystoprostatectomy and PLND POD#8 Advance to regular diet OOB D/C central line López Vora DO Oct 01, 2016 09:25
[2016-10-01 12:00] VITALS: BP 96/57; PULSE 83; RESP 17; TEMP 97.8; O2SAT 97
[2016-10-01] MEDS: PANTOPRAZOLE SODIUM 40 MG VIAL IV PUSH SCH (15:27)
[2016-10-01] MEDS: ENOXAPARIN SODIUM 30 MG/0.3 ML SYRINGE SQ SCH (15:27)
[2016-10-01 16:00] VITALS: BP 105/61; PULSE 84; RESP 16; TEMP 98.5; O2SAT 96
[2016-10-01 20:28] VITALS: BP 103/58; PULSE 79; RESP 17; TEMP 98; O2SAT 98
[2016-10-01 23:53] VITALS: BP 98/63; PULSE 91; RESP 18; TEMP 98.9; O2SAT 98
[2016-10-02] MEDS: INSULIN ASPART SUPPLEMENTAL SCALE SQ SCH ×2 (00:35)
[2016-10-02] MEDS: LACTATED RINGER'S 1000 ML INJ 1,000 ML IV SCH (00:35)
[2016-10-02 08:00] VITALS: BP 103/66; PULSE 76; RESP 18; TEMP 97.9; O2SAT 96
--- NOTE | 2016-10-02 08:13 | HHI.PR ---
Subjective Patient symptoms today Pt ready for discharge. Tolerating diet. Moving bowels and ambulating. Objective Vital Signs Vital Signs Date Time Temp Pulse Resp B/P Pulse Ox O2 Delivery O2 Flow Rate FiO2 10/01/16 23:53 98.9 91 18 98/63 98 10/01/16 20:28 98.0 79 17 103/58 98 10/01/16 16:00 98.5 84 16 105/61 96 10/01/16 12:00 97.8 83 17 96/57 97 Intake & Output 10/02/16 10/02/16 07:00 19:00 Intake Total 520 ml Output Total 1600 ml Balance -1080 ml Intake Oral 520 ml Output Urine Total 1600 ml Result Diagram: 10/01/16 0302 09/30/16 0510 Objective Remarks Abd:soft,tender on exam, no rebound, incisional tenderness Ext: neg C/C/E Pelvic Drain: blood tinged Dressing intact 09/25 Abd:soft,tender on exam, no rebound, incisional tenderness Ext: neg C/C/E Pelvic Drain: blood tinged Dressing intact 09/26 Abd:soft,some tenderness, not distended Stoma:pink and viable Dressing and stoma intact Drains in place Ext: neg C/C/E 09/27 Abd:soft,some tenderness, not distended Stoma:pink and viable Dressing and stoma intact Drains in place Ext: neg C/C/E 09/28 Abd:soft,some tenderness, not distended Stoma:pink and viable Dressing and stoma intact Drains in place Ext: neg C/C/E 09/29 Abd:soft,some tenderness, not distended Stoma:pink and viable Dressing and stoma intact Drains in place Ext: neg C/C/E 09/30 Abd:soft, nt, non-distended Stoma:pink and viable Dressing and stoma intact Ext: neg C/C/E 10/01 Abd:soft, nt, non-distended Stoma:pink and viable Dressing and stoma intact Ext: neg C/C/E 10/02 Abd:soft, nt, non-distended Stoma:pink and viable Dressing and stoma intact Ext: neg C/C/E Medications and IVs Current Medications Medications (Trade) Dose Ordered Sig/Alfredo Route Start Time Stop Time Status Last Admin (Protonix Inj) 40 mg Q24H IV PUSH 09/23/16 16:00 10/01/16 15:27 (Tylenol Supp) 120 mg Q6H PRN RECTAL 09/23/16 15:45 Enoxaparin Sodium 30 mg 30 mg Q24H SQ 09/24/16 15:00 10/01/16 15:27 (Lr 1000 ml Inj) 1,000 ml @ 84 mls/hr [id number] IV 09/23/16 16:00 10/01/16 02:45 (Zofran Inj) 4 mg Q6HR PRN IV PUSH 09/23/16 15:45 (Reyataz) 300 mg DAILY PO 09/24/16 09:00 10/01/16 09:11 ([place] 200-300 Mg) 1 tab DAILY PO 09/24/16 09:00 10/01/16 09:12 (Benadryl Inj) 25 mg Q6H PRN IV PUSH 09/23/16 17:00 (Norvir) 100 mg DAILY PO 09/24/16 09:00 10/01/16 09:12 (NovoLOG SUPPLEMENTAL SCALE) 1 Q6HR SQ 09/24/16 14:00 09/30/16 17:39 (D50w (Vial) Inj) 25 ml UNSCH PRN IV 09/24/16 13:45 (Glucagon Inj) 1 mg UNSCH PRN IM/SQ 09/24/16 13:45 (Dilaudid Pf Inj) 0.2 mg Q4H PRN IV PUSH 09/29/16 08:45 ([place] 7.5-325 Mg) 1 tab Q6H PRN PO 09/29/16 08:45 Assessment and Plan Assessment and Plan Stable s/p cystoprostatectomy and PLND OOB to chair today Encourage I/S Continue TPN Replace P04 4/ Stable s/p cystoprostatectomy and PLND OOB to chair Encourage I/S Continue TPN Replace P04/K+ Transfer to floor 4/ Stable s/p cystoprostatectomy and PLND POD#3 Replace K OOB to chair Path review with patient Hbg stable at 8.2. 09/27 Stable s/p cystoprostatectomy and PLND POD#4 D/C zacarias catheter OOB/Ambulate Labs stable 4 Stable s/p cystoprostatectomy and PLND POD#5 Passed gas; will d/c NGT OOB/Ambulate 4/17 Stable s/p cystoprostatectomy and PLND POD#6 Passed gas; NG tube out Start Clear liquid diet OOB/Ambulate 4 Stable s/p cystoprostatectomy and PLND POD#7 Advance to full liquid diet OOB/Ambulate D/C TPN 10/01 Stable s/p cystoprostatectomy and PLND POD#8 Advance to regular diet OOB D/C central line 10/02 Stable s/p cystoprostatectomy and PLND POD#9 D/C home López Vora DO Oct 02, 2016 08:13
--- NOTE | 2016-10-02 10:01 | HHI.PR ---
Subjective Remarks center medical specialist Notes: 61-year-old man with past medical history of HIV diagnosed 20 years ago on HAART , COPD, tobacco abuse who was diagnosed with muscle invasive bladder cancer in April of 2016. He was treated with neoadjuvant chemotherapy under the care of Dr. Mckeon. He states he completed chemotherapy 2 months ago. He underwent radical cystoprostatectomy and pelvic lymph node dissection with creation of ileo conduit by Dr. Jose Vora on 09/23/16 and critical care medicine was consulted to assist with medical management postoperatively. Hospitalist notes: 09/25: Seen in his bedroom in Intensive Care unit, recommended to replace Phosphorus that was done in am with Potassium Phosphate and also to replace magnesium with 2 grams of Magnesium Sulfate, will follow electrolytes in am. 09/26: Potassium replaced. 09/27: Potassium chloride replaced and today will replace Magnesium, Ileal conduit working fine ambulating well. 09/28: Seen in his bedroom, discussed with him and his Brother, continue with NG tube at slow suction. 09/29: Stable no complaint, NG tube removed by attending physician. 09/30: No complaint. 10/01: The patient states he will be discharged tomorrow, also Medically clear for discharge. 10/02: In the room in the presence of nurse Miss Sita coombs, no complaint , no chest pain, no dysuria, no nausea vomit or diarrhea. Objective Vital Signs Date Time Temp Pulse Resp B/P Pulse Ox O2 Delivery O2 Flow Rate FiO2 10/02/16 08:00 97.9 76 18 103/66 96 10/01/16 23:53 98.9 91 18 98/63 98 10/01/16 20:28 98.0 79 17 103/58 98 10/01/16 16:00 98.5 84 16 105/61 96 10/01/16 12:00 97.8 83 17 96/57 97 I/O 10/01/16 10/01/16 10/01/16 10/02/16 10/02/16 10/02/16 07:00 15:00 23:00 07:00 15:00 23:00 Intake Total 575 ml 600 ml 280 ml 240 ml Output Total 1000 ml 775 ml 800 ml 800 ml Balance -425 ml -175 ml -520 ml -560 ml Intake Oral 600 ml 280 ml 240 ml IV Total 575 ml Output Urine Total 1000 ml 775 ml 800 ml 800 ml # Bowel Movements 0 0 Result Diagram: 10/01/16 0302 09/30/16 0510 Imaging Last Impressions Chest X-Ray 09/23/16 0000 Signed Impressions: Service Date/Time: Friday, September 23, 2016 15:56 - CONCLUSION: 1. NG tube placement as above and central line placement as above without pneumothorax. 2. Free intraperitoneal air is noted. Kunal Rucker MD Abdomen X-Ray 09/23/16 0000 Signed Impressions: Service Date/Time: Friday, September 23, 2016 16:01 - CONCLUSION: Postsurgical changes are noted as above. Kunal Rucker MD Procedures s/p radical cystoprostatectomy, pelvic lymph node resection, ileal conduit, bilateral ureteral stents 09/23/16 (Dr. López Vora) Other Results Laboratory Tests Test 09/30/16 10/01/16 05:10 03:02 Sodium Level 139 MEQ/L Potassium Level 4.1 MEQ/L Chloride Level 105 MEQ/L Carbon Dioxide Level 26.2 MEQ/L Anion Gap 8 MEQ/L Blood Urea Nitrogen 12 MG/DL Creatinine 0.85 MG/DL Estimat Glomerular Filtration 91 ML/MIN Rate Random Glucose 143 MG/DL Calcium Level 8.8 MG/DL Phosphorus Level 3.1 MG/DL Magnesium Level 1.9 MG/DL Total Bilirubin 1.8 MG/DL Aspartate Amino Transf 29 U/L (AST/SGOT) Alanine Aminotransferase 42 U/L (ALT/SGPT) Alkaline Phosphatase 230 U/L Total Protein 6.2 GM/DL Albumin 2.4 GM/DL Hemoglobin 8.4 GM/DL Hematocrit 25.0 % Objective Remarks GENERAL: Well-nourished, No acute distress. SKIN: Warm and dry, well perfused. HEAD: Atraumatic. Normocephalic. EYES: Pupils equal and round, 3 mm and reactive bilaterally. No scleral icterus. No injection or drainage. ENT: No nasal bleeding or discharge. Mucous membranes pink and moist. NECK: Trachea midline. No JVD. CARDIOVASCULAR: Distant heart sounds. Regular rate and rhythm. RESPIRATORY: Clear to auscultation bilateral, no wheezing or crackles. GASTROINTESTINAL: Abdomen soft, mildly tender with absent bowel sounds, dressing in place lower abdomen c/d/i. Ileostomy stoma is pink. MUSCULOSKELETAL: Extremities without clubbing, cyanosis, or edema. NEUROLOGICAL: Awake and alert, oriented and conversing appropriately. Medications and IVs Current Medications Medications (Trade) Dose Ordered Sig/Alfredo Route Start Time Stop Time Status Last Admin (Protonix Inj) 40 mg Q24H IV PUSH 09/23/16 16:00 10/01/16 15:27 (Tylenol Supp) 120 mg Q6H PRN RECTAL 09/23/16 15:45 Enoxaparin Sodium 30 mg 30 mg Q24H SQ 09/24/16 15:00 10/01/16 15:27 (Lr 1000 ml Inj) 1,000 ml @ 84 mls/hr [id number] IV 09/23/16 16:00 10/01/16 02:45 (Zofran Inj) 4 mg Q6HR PRN IV PUSH 09/23/16 15:45 (Reyataz) 300 mg DAILY PO 09/24/16 09:00 10/01/16 09:11 ([place] 200-300 Mg) 1 tab DAILY PO 09/24/16 09:00 10/01/16 09:12 (Benadryl Inj) 25 mg Q6H PRN IV PUSH 09/23/16 17:00 (Norvir) 100 mg DAILY PO 09/24/16 09:00 10/01/16 09:12 (NovoLOG SUPPLEMENTAL SCALE) 1 Q6HR SQ 09/24/16 14:00 09/30/16 17:39 (D50w (Vial) Inj) 25 ml UNSCH PRN IV 09/24/16 13:45 (Glucagon Inj) 1 mg UNSCH PRN IM/SQ 09/24/16 13:45 (Dilaudid Pf Inj) 0.2 mg Q4H PRN IV PUSH 09/29/16 08:45 ([place] 7.5-325 Mg) 1 tab Q6H PRN PO 09/29/16 08:45 A/P Assessment and Plan 1. COPD/Tobacco dependence, Bronchodilator, Mucolytic and incentive spirometry early ambulation 2. Moderate Protein energy malnutrition/Hyperbilirubinemia NPO, TPN continue. 3. Invasive Urinary Bladder Cancer s/p radical cystoprostatectomy, pelvic lymph node resection, ileal conduit, bilateral ureteral stents 09/23/16 (Dr. López Vora) 4. HIV Resume HAART meds when able to take po. Monitor for signs/symptoms of infection. Perioperative antibiotics given. 5. Acute Blood loss anemia, Received 3 units of PRBCs in OR 09/23 following. Hemoglobin today 8.4 complete Iron IV for three days. 6. Electrolyte Derangement replaced DVT prophylaxis. Lovenox Discussed with Patient and nurse Miss Buckner Discharge Planning As per Attending physician. Jose Andre MD Oct 02, 2016 10:01
[2016-10-02] MEDS: RITONAVIR 100 MG TAB PO SCH (10:04)
[2016-10-02] MEDS: ATAZANAVIR 150 MG CAP PO SCH (10:04)
[2016-10-02] MEDS: EMTRICITABINE/TENOFOVIR 200 MG/300 MG TAB PO SCH (10:04)
--- NOTE | 2016-10-02 10:49 | HHI.FF ---
Face to Face Verification Diagnosis: (1) Bladder cancer (2) History of total cystectomy Home Health Nursing Order: Medical education Signs/symptoms of disease process Medication education-adverse effect Wound care and dressing changes Nursing assessment with vital signs I have seen patient Elias Foster on 10/02/16. My clinical findings support the need for the requested home health care services because: Ltd mobility - disease progression I certify that my clinical findings support that this patient is homebound because: Post-op weakness Unsafe to leave home unassisted Jose Andre MD Oct 02, 2016 10:49
[2016-10-02 12:00] VITALS: BP 107/69; PULSE 79; RESP 18; TEMP 97.4; O2SAT 97
[2016-10-27] MEDS ORDERED: MEGE40S PO (16:58)
[2016-10-27] MEDS ORDERED: COLA100C3 PO (16:58)
--- NOTE | 2016-11-03 09:38 | MD ---
cc: [facility] [place] ADMISSION DATE: 09/23/2016 DISCHARGE DATE: 10/02/2016 BRIEF HISTORY/HOSPITAL COURSE Mr. Foster was diagnosed with muscle invasive bladder cancer and received neoadjuvant chemotherapy and was admitted to undergo radical cystoprostatectomy with creation of an ileoconduit. He was stable throughout the entire operation and his postoperative course was unremarkable. He stayed in the hospital approximately 8 days and hospital day #1 his pain was controlled and he was started on a CONNECTION WORKER, this was then discontinued after a few days and he was up and ambulating without difficulty. He was instructed on how to use his ostomy appliance. He went on to tolerate his regular diet and his drains were removed during the course of his hospitalization. Stents were left in place through the conduit and will be later removed in the office. At the time of discharge he had been given instructions concerning diet, exercise and medications. Floyd RENE/TLL /9:34 AM /9:39 AM
== END 2016-10-02 13:20 | disposition home or self-care (01) | DRG 654 ==
LOC: HSDI 09-23 05:55 → N03B 09-23 18:59 → N07B 09-25 16:21
PROVIDERS: ADMIT Urology; ATTEND Urology
PROC: 0VT00ZZ Resection of Prostate, Open Approach (ICD-10-PCS; 2016-09-23)
PROC: 07TC0ZZ Resection of Pelvis Lymphatic, Open Approach (ICD-10-PCS; 2016-09-23)
PROC: 0T1807C Bypass Bilateral Ureters to Ileocutaneous with Autologous Tissue Substitute, Open Approach (ICD-10-PCS; 2016-09-23)
PROC: 0TTB0ZZ Resection of Bladder, Open Approach (ICD-10-PCS; principal; 2016-09-23 08:24)
DX: C67.4 Malignant neoplasm of posterior wall of bladder (principal); E44.0 Moderate protein-calorie malnutrition; R17 Unspecified jaundice; J44.9 Chronic obstructive pulmonary disease, unspecified; D62 Acute posthemorrhagic anemia; R73.9 Hyperglycemia, unspecified; R19.7 Diarrhea, unspecified; F17.210 Nicotine dependence, cigarettes, uncomplicated; Z68.21 Body mass index [BMI] 21.0-21.9, adult; Z21 Asymptomatic human immunodeficiency virus [HIV] infection status; Z92.21 Personal history of antineoplastic chemotherapy; Z98.1 Arthrodesis status
CPT/HCPCS: 36430; 71010; 74000; 76937; 80053; 82805; 82948; 83735; 84100; 84132; 84478; 85014; 85018; 85025; 85027; 85610; 86850; 86900; 86901; 86920; 86927; 88302; 88305; 88307; 88331; 94150; 94640; 94664; C2617; C9113; J0131; J1170; J1580; J1642; J1650; J1756; J1815; J2250; J2270; J2370; J2405; J3010; J3370; J3475; J3480; J7050; J7120; P9016; P9017; P9035

== ENCOUNTER → 2016-09-16 | Outpatient (CLI) | payer MEDICAID, OTHER ==
[~2016-09-16] MED LIST: BACT800T5 PO; COLA100C3 PO; EMTR1TAB PO; EMTR1TAB5 PO; MEGE40S PO; REYA300C PO; RITO100 PO
[2016-09-16 12:59] LABS: AUTOMATED NEUTROPHIL # 4.5 TH/MM3 (1.8-7.7); BASOPHIL % 0.5 % (0.0-2.0); EOSINOPHIL # 0.4 TH/MM3 (0-0.4); HEMO FLAGS DIFF FINAL; LYMPH % 37.7 % (9.0-44.0); LYMPHOCYTE # 3.4 TH/MM3 (1.0-4.8); MEAN CELL VOLUME 88.9 FL (80.0-100.0); MEAN CORPUSCULAR HEMOGLOBIN 29.8 PG (27.0-34.0); MEAN CORPUSCULAR HGB CONC 33.5 % (32.0-36.0); MONO % 8.5 % (0.0-8.0); NEUT % 49.3 % (16.0-70.0); PLATELET COUNT 268 TH/MM3 (150-450); RED BLOOD COUNT 3.37 MIL/MM3 (4.50-5.90); RED CELL DISTRIBUTION WIDTH 13.4 % (11.6-17.2); WHITE BLOOD COUNT 9.1 TH/MM3 (4.0-11.0)
[2016-09-16 13:09] LABS: APTT (PATIENT) 27.4 SEC (24.3-30.1); INTERNATIONAL NORMALIZED RATIO 0.9 RATIO; PROTHROMBIN TIME - PATIENT 10.4 SEC (9.8-11.6)
[2016-09-16 13:19] LABS: BACTERIA, URINE MOD /hpf; BLOOD, URINE MOD (NEG); COMMENT (UR) CULTURE INDICATED; CULTURE IF INDICATED CULTURE INDICATED; GLUCOSE,URINE NEG (NEG); KETONE, URINE NEG (NEG); MUCUS URINE FEW /lpf (OCC); NITRITE,URINE NEG (NEG); SQUAMOUS EPITHELIAL CELL URINE <1 /hpf (0-5); URINE COLOR YELLOW (YELLW/STRAW)
[2016-09-16 13:24] LABS: ALKALINE PHOSPHATASE 112 U/L (45-117); ALT (GPT) 14 U/L (12-78); ANION GAP 5 MEQ/L (5-15); AST (GOT) 10 U/L (15-37); BICARBONATE 28.6 MEQ/L (21.0-32.0); BLOOD UREA NITROGEN 18 MG/DL (7-18); CHLORIDE 106 MEQ/L (98-107); GLOMERULAR FILTRATION RATE 66 ML/MIN (>89); GLUCOSE,FASTING 98 MG/DL (74-99); POTASSIUM 4.4 MEQ/L (3.5-5.1); SODIUM (NA) 140 MEQ/L (136-145); TOTAL BILIRUBIN ADULT 0.8 MG/DL (0.2-1.0)
== END ==
LOC: CPRE 12:23
PROVIDERS: ATTEND Urology
DX: Z01.812 Encounter for preprocedural laboratory examination (principal); C67.4 Malignant neoplasm of posterior wall of bladder
CPT/HCPCS: 36415; 80053; 81001; 85025; 85610; 85730; 87086